=== PATIENT | female | born 1950 | race Caucasian/White ===

== ENCOUNTER 2016-10-24 06:45 | Inpatient (IN) | payer OTHER ==
[~2016-10-24] VITALS: Ht 149.9 cm; Wt 59.0 kg
[~2016-10-24 06:45] MED LIST: ASPIRIN81 M1 PO; ATORVASTATIN CA40 MG PO; CALCITRIOL0.25 MC1 PO; COZAAR100 MG PO; HUMULIN N100 U/M1 SC; IRON65 M2 PO; LANTUS100 U/ML SC; LEVAQUIN500 MG PO; LEVAQUIN750 MG PO; LOPRESSOR25 MG PO; Metoprolol Tartrate PO; OMEPRAZOLE40 MG PO
[2016-10-24 07:00] VITALS: BP 151/75
--- NOTE | 2016-10-24 07:07 | NUR ---
PT AKILA ALS. TAKEN TO BED 2
--- NOTE | 2016-10-24 07:08 | NUR ---
Dr. Cabrera evaluating patient at bedside.
--- NOTE | 2016-10-24 07:28 | NUR ---
PATIENT PRESENTS TO ED WITH 66F BIBA FROM HOME C/O ALOC D/T HYPOGLYCEMIA X TODAY; EMS STATES DAUGHTER KEPT GIVING LANTUS, BS IN FIELD 31; PT GIVEN D10, BS 172 AT THIS TIME. DENIES N/V/D; SKIN IS PINK/WARM/DRY; AAOX4, LUNGS CLEAR BL; HR EVEN AND REGULAR; PT DENIES ANY FEVER, CP, SOB, OR COUGH AT THIS TIME; PATIENT STATES PAIN OF 0/10 AT THIS TIME; VSS; PATIENT POSITIONED FOR COMFORT; HOB ELEVATED; BEDRAILS UP X2; BED DOWN. ER MD MADE AWARE OF PT STATUS.
--- NOTE | 2016-10-24 07:45 | NUR ---
PT LEFT TO CT
[2016-10-24] MEDS ORDERED: POTASSIUM CHL 40 MEQ/ D5-1/2NS 1,000 ML IV ONE (08:30)
[2016-10-24] MEDS ORDERED: DEXTROSE 25% 10 ML SYR IVP ONE (08:30)
[2016-10-24] MEDS ORDERED: DEXTROSE 50% 50 ML SYR IVP ONE (08:40)
[2016-10-24 11:15] VITALS: BP 154/76
--- NOTE | 2016-10-24 11:15 | NUR ---
RECEIVED PATIENT FROM ER WITH CHIEF COMPLAINING OF LOW BLOOD SUGAR, HYPOKALEMIA AND ALTERED MENTAL STATUS. PATIENT APPEARED TO BE CALM AWAKE AND RESTING WELL IN BED. AAOX4 CROATIAN SPEAKING. ABLE TO FOLLOW ALL COMMANDS AND VERBALIZE NEEDS. INITIAL ASSESSMENT DONE. SKIN INTACT. PATIENT DENIED ANY PAIN OR DISCOMFORT. DENIED N/V/D. ABLE TO ASSESS PATIENT'S HISTORY FROM DAUGHTER. PATIENT HAS IV22G TO RIGHT WRIST INTACT AND FLUSHED WELL. REORIENTED PATIENT TO CURRENT UNIT. MRSA SWAB DONE. PLAN OF CARE AND MEDICATION REGIMENTS DISCUSSED, PATIENT AND DAUGHTER VERBALIZED UNDERSTANDING. CALL LIGHT WITHIN REACH. WILL CONTINUE TO MONITOR.
[2016-10-24] MEDS ORDERED: ONDANSETRON 4 MG/2 ML VIAL IVP PRN (12:00)
[2016-10-24] MEDS ORDERED: NACL 0.9% 1,000 ML IV SCH (12:00)
[2016-10-24] MEDS ORDERED: HYDROcodone/APAP 5/325 MG 1 TAB TAB PO PRN (12:00)
--- NOTE | 2016-10-24 12:20 | NUR ---
DR DC AND DR FRANCO IS HERE TO SEE AND EVALUATING PATIENT.
[2016-10-24] MEDS ORDERED: INSULIN ASPART SLIDING SCALE 100 UNITS/ML VIAL SUBQ PRN (12:25)
[2016-10-24] MEDS ORDERED: DEXTROSE 50% 50 ML SYR IVP PRN (12:25)
[2016-10-24] MEDS ORDERED: hydrALAZINE 20 MG/ML VIAL IVP PRN (12:35)
--- NOTE | 2016-10-24 13:20 | NUR ---
RECEIVED TELEPHONE ORDER FROM DR BRAN FOR PATIENT FOR URINE CREATININE, SODIUM AND CHLORIDE RANDOM, AND D5 NS AT 75ML/HR. WILL FOLLOW THROUGH MD ORDERS.
[2016-10-24] MEDS ORDERED: DEXT 5% /NACL 0.9% 1,000 ML IV SCH (13:25)
--- NOTE | 2016-10-24 14:19 | NUR ---
GAVE PATIENT A CUP AND INSTRUCTED HER TO PEE IN THE CUP FOR URINE ANALYSIS, PATIENT VERBALIZED UNDERSTANDING.
[2016-10-24 16:00] VITALS: BP 148/74
[2016-10-24] MEDS ORDERED: BLOOD GLUCOSE MONITORING 1 DEV DEV FS SCH (16:30)
[2016-10-24] MEDS: BLOOD GLUCOSE MONITORING 1 DEV DEV FS SCH ×2 (18:00→23:42)
--- NOTE | 2016-10-24 18:05 | NUR ---
PATIENT CALM AWAKE AND RESTING WELL IN BED. NO SIGN OF DISTRESS NOTED. PATIENT DENIED ANY PAIN OR DISCOMFORT. ALL NEEDS ARE MET. CALL LIGHT WITHIN REACH. WILL CONTINUE TO MONITOR.
--- NOTE | 2016-10-24 19:21 | NUR ---
ENDORSED PATIENT CURRENT PLAN OF CARE TO NIGHT UCHE CH. PATIENT RESTING WELL IN BED. NO SIGN OF DISTRESS NOTED.
--- NOTE | 2016-10-24 19:22 | NUR ---
RECEIVED REPORT FROM DAY NURSEADY. PATIENT RESTING IN BED. NO RESPIRATORY DISTRESS, SOB, OR DISCOMFORT. INITIAL ASSESSMENT AND BODY CHECK DONE. PATIENT IS AOX4, SKIN IS INTACT, IV ACCESS TO RIGHT WRIST 22G PATENT. OLD SCAR TO RIGHT LOWER ABDOMEN, PREVIOUS INSULIN PUMP PLACEMENT. DISCUSSED PLAN OF CARE, MEDICATION REGIMENT, AND PAIN MANAGEMENT WITH PATIENT, PATIENT VERBALIZED UNDERSTANDING. PLACE PATIENT ON SAFETY/FALL PRECAUTIONS. CALL LIGHT LEFT WITHIN REACH, WILL CONTINUE TO MONITOR.
[2016-10-24 20:00] VITALS: BP 144/76
[2016-10-24] MEDS ORDERED: [UNRECOGNIZED DRUG - OTHER] PO SCH (21:00)
[2016-10-24] MEDS ORDERED: METOPROLOL 25 MG TAB PO SCH (21:00)
--- NOTE | 2016-10-24 22:02 | NUR ---
PATIENT RESTING IN BED, WATCHING TELEVISION. NO RESPIRATORY DISTRESS, SOB, OR DISCOMFORT. CALL LIGHT LEFT WITHIN REACH, WILL CONTINUE TO MONITOR.
[2016-10-25] VITALS: BP 145/60
--- NOTE | 2016-10-25 00:54 | NUR ---
PATIENT IN BED, SLEEPING. NO RESPIRATORY DISTRESS, SOB, OR DISCOMFORT. CALL LIGHT LEFT WITHIN REACH, WILL CONTINUE TO MONITOR.
--- NOTE | 2016-10-25 03:24 | NUR ---
PATIENT ASLEEP. NO RESPIRATORY DISTRESS, SOB, OR DISCOMFORT. CALL LIGHT LEFT WITHIN REACH, WILL CONTINUE TO MONITOR.
[2016-10-25 04:00] VITALS: BP 123/47
[2016-10-25] MEDS: BLOOD GLUCOSE MONITORING 1 DEV DEV FS SCH ×3 (06:00→18:05)
--- NOTE | 2016-10-25 06:04 | NUR ---
PATIENT SLEEPING. NO RESPIRATORY DISTRESS, SOB, OR DISCOMFORT. CALL LIGHT LEFT WITHIN REACH, WILL CONTINUE TO MONITOR.
[2016-10-25] MEDS ORDERED: PANTOPRAZOLE 40 MG TABEC PO SCH (06:30)
--- NOTE | 2016-10-25 07:16 | NUR ---
REPORT GIVEN TO DAY NURSE, ADY. PATIENT RESTING STABLE. NO RESPIRATORY DISTRESS, SOB, OR DISCOMFORT. ALL NEEEDS ATTENDED TO DURING SHIFT, CALL LIGHT LEFT WITHIN REACH.
--- NOTE | 2016-10-25 07:17 | NUR ---
RECEIVED REPORT FROM NIGHT NURSE, CHARLETTE IVEY RN. PATIENT APPEARED TO BE CALM AWAKE AND RESTING WELL IN BED. NO RESPIRATORY DISTRESS, SOB, OR DISCOMFORT. INITIAL ASSESSMENT AND BODY CHECK DONE. PATIENT IS AOX4, SKIN IS INTACT, IV ACCESS TO RIGHT WRIST 22G PATENT. OLD SCAR TO RIGHT LOWER ABDOMEN NOTED FOR PREVIOUS INSULIN PUMP PLACEMENT. DISCUSSED PLAN OF CARE, MEDICATION REGIMENT, AND PAIN MANAGEMENT WITH PATIENT, PATIENT VERBALIZED UNDERSTANDING. PLACE PATIENT ON SAFETY/FALL PRECAUTIONS. CALL LIGHT LEFT WITHIN REACH, WILL CONTINUE TO MONITOR.
[2016-10-25] MEDS: METOPROLOL 25 MG TAB PO SCH ×2 (08:15→16:54)
--- NOTE | 2016-10-25 08:19 | NUR ---
MORNING DUE MEDICATIONS AND TEACHING GIVEN, PATIENT TOLERATED WELL. NO SIGN OF DISTRESS NOTED. PATIENT DENIED ANY PAIN OR DISCOMFORT. ALL NEEDS ARE MET. CALL LIGHT WITHIN REACH. WILL CONTINUE TO MONITOR.
[2016-10-25] MEDS ORDERED: NACL 0.9% 1,000 ML IV SCH (08:30)
--- NOTE | 2016-10-25 08:57 | NUR ---
PATIENT HAS BEEN SCREENED AND CATEGORIZED HIGH NUTRITION RISK. PATIENT WILL BE SEEN WITHIN 1-2 DAYS OF ADMISSION. 10/25/16-10/26/[address]
[2016-10-25] MEDS ORDERED: NON-FORMULARY ITEM (Atorvastatin Calcium 40 MG) PO SCH (09:00)
[2016-10-25] MEDS ORDERED: ENOXAPARIN 40 MG/0.4 ML SYR SUBQ SCH (09:00)
[2016-10-25] MEDS ORDERED: ATORVASTATIN 20 MG TAB PO SCH (09:00)
[2016-10-25] MEDS ORDERED: ASPIRIN 81 MG TAB.CHEW PO SCH (09:00)
[2016-10-25] MEDS ORDERED: CALCITRIOL 0.5 MCG PO SCH (09:00)
[2016-10-25] MEDS ORDERED: CALCITRIOL 0.25 MCG CAPLF PO SCH (09:00)
[2016-10-25] MEDS ORDERED: NON-FORMULARY ITEM (Omeprazole 40 MG) PO SCH (09:00)
[2016-10-25 09:30] VITALS: BP 133/77
--- NOTE | 2016-10-25 11:24 | NUR ---
PATIENT SLEEP WELL IN BED. NO SIGN OF DISTRESS NOTED. IVF STILL INFUSING WELL. ALL NEEDS ARE MET. CALL LIGHT WITHIN REACH. WILL CONTINUE TO MONITOR.
[2016-10-25 11:41] VITALS: BP 142/80
--- NOTE | 2016-10-25 12:49 | NUR ---
FAXED REVIEW TO [facility] FAX# [phone] PH# RADHA [phone]
--- NOTE | 2016-10-25 13:01 | NUR ---
PATIENT SLEEP WELL IN BED. NO SIGN OF DISTRESS NOTED. ALL NEEDS ARE MET. CALL LIGHT WITHIN REACH. WILL CONTINUE TO MONITOR.
[2016-10-25] MEDS ORDERED: DEXT 5% / NACL 0.9% 1,000 ML IV SCH (13:25)
[2016-10-25 16:00] VITALS: BP 140/75
--- NOTE | 2016-10-25 19:01 | NUR ---
ALL DISCHARGE PAPERS SIGNED BY PATIENT'S DAUGHTER. ALL DISCHARGE MEDICATIONS PRESCRIPTION AND FOLLOW UP WITH PCP WITHIN 1 WEEK OF DISCHARGE INSTRUCTIONS GIVEN, PATIENT VERBALIZED UNDERSTANDING. ALL IV'S ID BAND AND TELE MONITOR REMOVED. PATIENT WILL BE DISCHARGE HOME VIA PRIVATE VEHICLE. PATIENT DENIED ANY PAIN OR DISCOMFORT. DENIED ANY N/V/D. ALL BELONGING WITH PATIENT. SKIN INTACT. NO SIGN OF DISTRESS NOTED.
--- NOTE | 2016-10-25 19:14 | NUR ---
PATIENT LEFT THE HOSPITAL TO HOME WITH HER DAUGHTER IN STABLE CONDITION. SKIN INTACT. NO SIGN OF DISTRESS NOTED. ALL BELONGINGS WITH PATIENT.
--- NOTE | 2016-11-08 10:18 | NUR ---
RECEIVED A VOICEMAIL FROM [facility] REQUESTING FOR THE DISCHARGE SUMMARY FOR THIS ADMISSION. FAXED DISCHARGE SUMMARY TO [facility] FAX# [phone]
[2016-11-30] MEDS ORDERED: CIPRO500 MG PO (09:05)
== END 2016-10-25 19:15 | disposition home or self-care (01) | DRG 917 ==
LOC: MED 06:45 → MTU 10:39
PROVIDERS: ADMIT Hospitalist; ATTEND Hospitalist
DX: T38.3X1A Poisoning by insulin and oral hypoglycemic [antidiabetic] drugs, accidental (unintentional), initial encounter (principal); G93.41 Metabolic encephalopathy; N17.9 Acute kidney failure, unspecified; N18.4 Chronic kidney disease, stage 4 (severe); E11.649 Type 2 diabetes mellitus with hypoglycemia without coma; E21.1 Secondary hyperparathyroidism, not elsewhere classified; J44.9 Chronic obstructive pulmonary disease, unspecified; E87.6 Hypokalemia; I12.9 Hypertensive chronic kidney disease with stage 1 through stage 4 chronic kidney disease, or unspecified chronic kidney disease; E66.9 Obesity, unspecified; E11.21 Type 2 diabetes mellitus with diabetic nephropathy; E78.5 Hyperlipidemia, unspecified; I45.10 Unspecified right bundle-branch block; T38.3X5A Adverse effect of insulin and oral hypoglycemic [antidiabetic] drugs, initial encounter; Z68.26 Body mass index [BMI] 26.0-26.9, adult; Z90.49 Acquired absence of other specified parts of digestive tract; Z79.899 Other long term (current) drug therapy; Z79.82 Long term (current) use of aspirin; Z79.4 Long term (current) use of insulin; Y92.009 Unspecified place in unspecified non-institutional (private) residence as the place of occurrence of the external cause; Z87.891 Personal history of nicotine dependence; Z83.3 Family history of diabetes mellitus

== ENCOUNTER 2016-11-27 10:37 | Inpatient (IN) | payer OTHER ==
[~2016-11-27] VITALS: Ht 149.9 cm; Wt 74.4 kg
[~2016-11-27 10:37] MED LIST changes: +ASPI81CT89 PO; -ASPIRIN81 M1 PO; +ATOR40TA40 PO; -ATORVASTATIN CA40 MG PO; +CALC0.254 PO; -CALCITRIOL0.25 MC1 PO; -COZAAR100 MG PO; -HUMULIN N100 U/M1 SC; +INSU100S10 SC; -IRON65 M2 PO; +IRON65TA3 PO; +LANTUS SC; -LANTUS100 U/ML SC; -LEVAQUIN500 MG PO; -LEVAQUIN750 MG PO; -LOPRESSOR25 MG PO; +LOSA100T1 PO; +METO25TA PO; -Metoprolol Tartrate PO; +OMEP40EC14 PO; -OMEPRAZOLE40 MG PO
--- NOTE | 2016-11-27 10:44 | NUR ---
Patient taken to bed 01 via wheelchair per family member.
[2016-11-27] MEDS ORDERED: NACL 0.9% 1,000 ML IV ONE ×2 (10:50→11:10)
[2016-11-27 10:51] VITALS: BP 141/109
--- NOTE | 2016-11-27 11:01 | NUR ---
PATIENT PRESENTS TO ED WITH PT BIB DAUGHTER FOR EVALUATION OF COUGH AND SHAKINESS SINCE THIS AM. HX DM, HTN, STAGE 1 KIDNEY FAILURE.DENIES N/V/D; SKIN IS PINK/WARM/DRY; AAOX4, LUNGS CLEAR BL; HR EVEN AND REGULAR; PT DENIES ANY FEVER, CP, SOB, OAT THIS TIME; PATIENT STATES PAIN OF 10/10 AT THIS TIME; VSS; PATIENT POSITIONED FOR COMFORT; HOB ELEVATED; BEDRAILS UP X2; BED DOWN. ER MD MADE AWARE OF PT STATUS.
[2016-11-27] MEDS ORDERED: cloNIDine 0.1 MG TAB PO ONE (11:10)
[2016-11-27] MEDS: KETOROLAC 30 MG/ML VIAL IVP ONE ×2 (11:11→11:20)
[2016-11-27 11:14] LABS: BASOPHILS # (AUTO) 0.2 K/uL (0.00-0.22); BASOPHILS % (AUTO) 1.8 % (0.0-2.0); EOSINOPHILS # (AUTO) 0.2 K/uL (0-0.4); EOSINOPHILS % (AUTO) 1.2 % (0.0-4.0); HEMOGLOBIN 9.9 g/dL (12.0-16.0); LYMPHOCYTES # (AUTO) 0.6 K/uL (2.5-16.5); LYMPHOCYTES % (AUTO) 4.5 % (20.5-51.1); MEAN CORPUSCULAR HEMOGLOBIN 28 pg (27-31); MEAN CORPUSCULAR HGB CONC 31 g/dL (33-37); MEAN CORPUSCULAR VOLUME 89 fL (80-94); MONOCYTES # (AUTO) 0.2 K/uL (0.8-1.0); MONOCYTES % (AUTO) 1.8 % (1.7-9.3); PLATELET COUNT (AUTO) 240 K/uL (140-450); RED CELL DISTRIBUTION WIDTH 12.2 % (11.6-13.7); WHITE BLOOD COUNT (AUTO) 13.2 K/uL (4.8-10.8)
[2016-11-27] MEDS ORDERED: ACETAMINOPHEN 325 MG SUPP RC ONE (11:19)
--- NOTE | 2016-11-27 11:23 | NUR ---
Dr. Campa evaluating patient at bedside.
[2016-11-27] MEDS ORDERED: PIPERACILLIN/TAZOBACTAM 3.375 GM in DEXTROSE 5% 50 ML IV ONE (11:25)
--- NOTE | 2016-11-27 11:25 | NUR ---
HAD PT'S DAUGHTER INSTRUCT PT HOW TO DEEP COUGH AND GIVE A SPUTUM
[2016-11-27 11:30] LABS: ALBUMIN 3.8 g/dL (3.4-5.0); ANION GAP 20.4 (8-16); CARBON DIOXIDE 23.9 mmol/L (21-32); CREATININE 3.1 mg/dL (0.6-1.3); POTASSIUM 4.3 mmol/L (3.5-5.1); TOTAL BILIRUBIN 0.4 mg/dL (0.0-1.0); TOTAL PROTEIN, SERUM 8.4 g/dL (6.4-8.2)
[2016-11-27 11:32] LABS: PARTIAL THROMBOPLASTIN TIME 21.2 secs (22-35.6); PROTHROMBIN TIME 9.5 secs (10.8-13.4)
[2016-11-27] MEDS ORDERED: PIPERACILLIN/TAZOBACTAM 3.375 GM VIAL IV ONE (11:32)
[2016-11-27 11:38] LABS: NEUTROPHILS % (AUTO) 90.7 % (42.2-75.2)
[2016-11-27 11:39] LABS: LACTIC ACID 4.9 mmol/L (0.4-2.0)
[2016-11-27] MEDS ORDERED: ONDANSETRON 4 MG/2 ML VIAL IVP ONE (11:45)
[2016-11-27] MEDS ORDERED: NACL 0.9% 250 ML IV ONE (11:45)
[2016-11-27] MEDS ORDERED: NACL 0.9% 500 ML IV ONE (11:45)
[2016-11-27 12:49] LABS: APPEARANCE,URINE CLEAR (CLEAR); BILIRUBIN,URINE NEGATIVE (NEGATIVE); BLOOD, URINE TRACE-I (NEGATIVE); COLOR,URINE YELLOW (YELLOW); LEUKOCYTE ESTERASE ,URINE TRACE (NEGATIVE); NITRITE, URINE POSITIVE (NEGATIVE); PROTEIN,URINE 2+ (NEGATIVE); UGLUCOSE NEGATIVE (NEGATIVE); UROBILINOGEN,URINE 0.2 EU/dL (0.2 - 1)
[2016-11-27] MEDS ORDERED: DEXTROSE 50% 50 ML SYR IVP PRN (13:00)
[2016-11-27] MEDS ORDERED: ACETAMINOPHEN 325 MG TAB PO PRN (13:00)
[2016-11-27] MEDS ORDERED: ONDANSETRON 4 MG/2 ML VIAL IVP PRN (13:00)
[2016-11-27 13:07] LABS: BACTERIA,URINE 10-30 (MOD) /HPF (None Seen); MUCUS,URINE 1+ /LPF (None Seen); RBC,URINE 0-5 (RARE) /HPF (0-5); SQUAMOUS EPITHELIAL CELL,UR 0-3 (FEW) /LPF (0-3 (FEW)); URINE AMORPHOUS URATE 1+ /HPF (None Seen)
[2016-11-27 13:26] LABS: HEMATOCRIT 27.9 % (36-48); HEMOGLOBIN 9.3 g/dL (12.0-16.0)
--- NOTE | 2016-11-27 13:28 | NUR ---
Patient will be admitted to care of DR. CARRILLO. Admited to TELE Will go to room 108 A Belongings list completed. Report to JING SHARPE
[2016-11-27 13:50] VITALS: BP 103/57
[2016-11-27] MEDS: NACL 0.9% 1,000 ML IV SCH (13:50)
--- NOTE | 2016-11-27 13:50 | NUR ---
PATIENT RECEIVED FROM ER WITH DX OF UROSEPSIS. PATIENT AWAKE, ALERT AND ORIENTED. NO S/S OF DISTRESS NOTED. PATIENT ON ROOM AIR. SKIN IS INTACT.IV LINES NOTED TO THE RIGHT WRIST AND LEFT HAND SALINE LOCKED. PATIENT IS AMBULATORY WITH ASSIST. DAUGHTER PRESENT AT BEDSIDE TO PROVIDE HX. PATIENT PUT ON TELE MONITORING. BED LOWERED WITH CALL LIGHT WITHIN REACH. WILL CONTINUE TO MONITOR
[2016-11-27] MEDS: AZITHROMYCIN 500 MG in DEXTROSE 5% 250 ML IV SCH (15:23)
[2016-11-27 16:00] VITALS: BP 100/50
--- NOTE | 2016-11-27 16:21 | NUR ---
MADE DR CARRILLO AWARE OF PATIENT C/O LEFT SHOULDER AND RIB PAIN. ORDERS RECEIVED
[2016-11-27] MEDS ORDERED: MORPHINE SULFATE 2 MG/ML SYR IVP PRN (16:30)
--- NOTE | 2016-11-27 16:31 | NUR ---
PATIENT REFUSED PAIN MEDICATION. PATIENT STATES IT IS BAD FOR HER KIDNEYS. EXPLAINED TO THE PATIENT THAT DR IS AWARE OF HER CONDITION BUT STILL REFUSED THE MEDICATION
[2016-11-27] MEDS: BLOOD GLUCOSE MONITORING 1 DEV DEV FS SCH ×2 (17:17→21:00)
[2016-11-27] MEDS: INSULIN ASPART SLIDING SCALE 100 UNITS/ML VIAL SUBQ PRN ×2 (17:59→21:01)
--- NOTE | 2016-11-27 19:32 | NUR ---
PATIENT REPORT GIVEN AT BEDSIDE. PATIENT ENDORSED IN STABLE CONDITION
--- NOTE | 2016-11-27 19:33 | NUR ---
RECD. RESTING IN BED, AWAKE, A/OX4, RESPIRATION EVEN AND UNLABORED. IV OF NS AT 70 ML/HR INFUSING LEFT HAND G24. SALINE LOCK AT THE RIGHT WRIST G22, PATENT, INTACT. PLAN OF CARE FOR THE SHIFT DISCUSSED. VERBALIZED UNDERSTANDING. SAFETY MEASURES ENFORCED. DENIES PAIN 0/10.
[2016-11-27 20:00] VITALS: BP 116/55
--- NOTE | 2016-11-27 21:00 | NUR ---
BS CHECKED - 442, DR. GASTON ORDERED 12 UNITS NOVOLOG SUB Q FOR BLOOD SUGAR GREATER THAN 400.
--- NOTE | 2016-11-27 21:30 | NUR ---
Patient's Plan of Care was discussed and reviewed with [employer]AST[employer] TREATMENT SUPERVISOR: KIMBERLY GRANDA
--- NOTE | 2016-11-27 21:30 | NUR ---
SNACK OF 1/2 SANDWICH GIVEN.
[2016-11-28] VITALS: BP 150/59
--- NOTE | 2016-11-28 | NUR ---
NOTED LOW MOANING,INQUIRED IF SHE HAS PAIN, COMPLAINED THAT SHE HAS LEFT SHOULDER PAIN AND RIB PAIN BUT REFUSED TO BE MEDICATED EVEN WITH TYLENOL, CLAIMED IT WILL CAUSE PAIN IN HER FLANK.
[2016-11-28] MEDS: NACL 0.9% 1,000 ML IV SCH ×3 (02:04→15:44)
[2016-11-28 04:00] VITALS: BP 120/54
--- NOTE | 2016-11-28 04:00 | NUR ---
SLEEPING COMFORTABLY IN BED.
[2016-11-28] MEDS: BLOOD GLUCOSE MONITORING 1 DEV DEV FS SCH ×4 (06:22→21:05)
[2016-11-28] MEDS: INSULIN ASPART SLIDING SCALE 100 UNITS/ML VIAL SUBQ PRN ×3 (06:23→17:17)
[2016-11-28 06:40] LABS: BASOPHILS % (AUTO) 0.2 % (0.0-2.0); EOSINOPHILS # (AUTO) 0.3 K/uL (0-0.4); EOSINOPHILS % (AUTO) 1.3 % (0.0-4.0); HEMATOCRIT 24.9 % (36-48); HEMOGLOBIN 8.5 g/dL (12.0-16.0); LYMPHOCYTES # (AUTO) 1.1 K/uL (2.5-16.5); LYMPHOCYTES % (AUTO) 5.7 % (20.5-51.1); MEAN CORPUSCULAR HEMOGLOBIN 30 pg (27-31); MEAN CORPUSCULAR HGB CONC 34 g/dL (33-37); MEAN CORPUSCULAR VOLUME 90 fL (80-94); MONOCYTES # (AUTO) 0.9 K/uL (0.8-1.0); MONOCYTES % (AUTO) 4.7 % (1.7-9.3); NEUTROPHILS # (AUTO) 17.1 K/uL (1.8-7.7); NEUTROPHILS % (AUTO) 88.1 % (42.2-75.2); PLATELET COUNT (AUTO) 164 K/uL (140-450); RED BLOOD CELL COUNT(AUTO) 2.78 MIL/uL (4.20-5.40); RED CELL DISTRIBUTION WIDTH 12.1 % (11.6-13.7)
--- NOTE | 2016-11-28 06:40 | NUR ---
CONDITION REMAIN STABLE. WILL ENDORSE TO AM NURSE FOR CONTINUITY OF CARE.
[2016-11-28 07:00] LABS: ANION GAP 13.6 (8-16); CALCIUM 7.9 mg/dL (8.5-10.1); CARBON DIOXIDE 25.5 mmol/L (21-32); CREATININE 3.2 mg/dL (0.6-1.3); POTASSIUM 4.1 mmol/L (3.5-5.1)
--- NOTE | 2016-11-28 07:15 | NUR ---
ENDORSED TO JING GOULD FOR CONTINUITY OF CARE.
--- NOTE | 2016-11-28 07:16 | NUR ---
RECEIVED REPORT FROM SUSANA HARRIS. PT IS AAOX4. PT ON ROOM AIR WITH NO S/S OF DISTRESS NOTED. IV TO LEFT HAND #24, PATENT AND INTACT. NO N/V OR PAIN INDICATED. ALL SAFETY PRECAUTIONS IN PLACE, SIDE RAILSX2, BED IN LOW POSITION, AND CALL LIGHT WITHIN REACH. WILL CONTINUE TO MONITOR. Addendum: 11/28/16 at 0800 by Nicolle Perla RN SKIN INTACT.
--- NOTE | 2016-11-28 07:32 | NUR ---
RECEIVED CRITICAL FROM LAB. BUN 89, CREATININE 3.2. DR CARRILLO MADE AWARE, NO ORDERS RECEIVED.
[2016-11-28 07:45] LABS: WHITE BLOOD COUNT (AUTO) 19.4 K/uL (4.8-10.8)
[2016-11-28 08:00] VITALS: BP 123/57
[2016-11-28] MEDS: PANTOPRAZOLE 40 MG INJ VIAL IVP SCH (09:16)
--- NOTE | 2016-11-28 09:21 | NUR ---
PATIENT HAS BEEN SCREENED AND CATEGORIZED HIGH NUTRITION RISK. PATIENT WILL BE SEEN WITHIN 1-2 DAYS OF ADMISSION. 11/28/16-11/29/[address]
--- NOTE | 2016-11-28 09:22 | NUR ---
PT TOLERATED MEDS WELL. WILL CONTINUE TO MONITOR.
[2016-11-28] MEDS ORDERED: INSULIN DETEMIR 100 UNITS/ML 10 ML VIAL SUBQ SCH (09:39)
[2016-11-28] MEDS ORDERED: CALCITRIOL 0.25 MCG CAPLF PO SCH (09:40)
--- NOTE | 2016-11-28 09:58 | NUR ---
BLOOD GLUCOSE 301, ADMINISTERED 35 UNITS OF LEVEMIR ORDERED. PT TOLERATED MEDS WELL. WILL CONTINUE TO MONITOR.
[2016-11-28] MEDS: INSULIN HUMAN NPH 100 UNITS/ML VIAL SUBQ SCH ×2 (11:35→16:22)
--- NOTE | 2016-11-28 11:38 | NUR ---
BLOOD GLUCOSE 277, ADMINISTERED 6 UNITS OF NPH ORDERED. PT TOLERATED WELL. WILL ADMINISTER NOVOLOG WHEN FOOD TRAY ARRIVES.
[2016-11-28 12:00] VITALS: BP 131/64
[2016-11-28] MEDS: FERROUS SULFATE 325 MG TABEC PO SCH ×2 (12:15→16:19)
--- NOTE | 2016-11-28 12:24 | NUR ---
PT TOLERATED MEDS WELL. BLOOD GLUCOSE 277, ADMINISTERED 6 UNITS OF NOVOLOG ORDERED. PT TOLERATED WELL. WILL CONTINUE TO MONITOR.
[2016-11-28] MEDS: AZITHROMYCIN 500 MG in DEXTROSE 5% 250 ML IV SCH (13:14)
--- NOTE | 2016-11-28 13:19 | NUR ---
PT TOLERATED MEDS WELL. WILL CONTINUE TO MONITOR.
--- NOTE | 2016-11-28 13:29 | NUR ---
FAXED INITIAL REVIEW TO [facility] [phone] PHONE MARCH [phone]
--- NOTE | 2016-11-28 15:00 | NUR ---
VSS. NO DISTRESS NOTED AT THIS TIME.
[2016-11-28 15:55] LABS: HEMATOCRIT 25.8 % (36-48); HEMOGLOBIN 8.5 g/dL (12.0-16.0)
[2016-11-28 16:00] VITALS: BP 129/68
--- NOTE | 2016-11-28 16:24 | NUR ---
PT TOLERATED MEDS WELL. BLOOD GLUCOSE 364, ADMINISTERED 6 UNITS OF NPH. WILL CONTINUE TO MONITOR.
--- NOTE | 2016-11-28 16:49 | NUR ---
FAMILY PRESENT AT BEDSIDE. WILL CONTINUE TO MONITOR.
--- NOTE | 2016-11-28 17:18 | NUR ---
BLOOD GLUCOSE 215, ADMINISTERED 4 UNITS OF INSULIN ORDERED. WILL CONTINUE TO MONITOR.
--- NOTE | 2016-11-28 18:43 | NUR ---
PT WATCHING TV WITH NO DISTRESS NOTED.
--- NOTE | 2016-11-28 19:20 | NUR ---
ENDORSED CARE TO JING CHOE. PT IN STABLE CONDITION.
--- NOTE | 2016-11-28 19:30 | NUR ---
RECEIVED REPORT FROM BRYANNA RN AT BEDSIDE, PATIENT IS AAOX4. ASSESSMENT COMPLETE, PATIENT SKIN INTACT, IV TO LH 24G WITH FLUIDS INFUSING WELL. PATIENT DENIES PAIN AT THIS TIME, NO SOB OR SIGN OF DISTRESS. SAFETY MEASURES CHECKED, DISCUSSED PLAN OF CARE WITH PATIENT, PATIENT VERBALIZED UNDERSTANDING, CALL LIGHT WITHIN REACH. WILL CONTINUE TO MONITOR.
[2016-11-28 20:00] VITALS: BP_SYST 136; BP_SYST 148; BP_DIAS 66; BP_DIAS 75
[2016-11-28] MEDS: ATORVASTATIN 20 MG TAB PO SCH (21:04)
[2016-11-28] MEDS: METOPROLOL 25 MG TAB PO SCH (21:04)
[2016-11-28] MEDS: LOSARTAN 50 MG TAB PO SCH (21:05)
--- NOTE | 2016-11-28 21:10 | NUR ---
PM MEDS ADMINISTERED, PATIENT TOLERATED WELL, CALL LIGHT WITHIN REACH. WILL CONTINUE TO MONITOR.
--- NOTE | 2016-11-28 22:30 | NUR ---
PATIENT RESTING IN BED, PROVIDED PATIENT WITH SNACKS. CALL LIGHT WITHIN REACH, WILL CONTINUE TO MONITOR.
--- NOTE | 2016-11-28 23:30 | NUR ---
PATIENT SLEEPING, NO SIGN OF DISTRESS, CALL LIGHT WITHIN REACH. WILL CONTINUE TO MONITOR.
[2016-11-29] VITALS: BP 136/66
--- NOTE | 2016-11-29 01:06 | NUR ---
VITAL SIGNS STABLE, PATIENT GOING TO SLEEP, NO DISTRESS NOTED, CALL LIGHT WITHIN REACH. WILL CONTINUE TO MONITOR.
[2016-11-29] MEDS: NACL 0.9% 1,000 ML IV SCH ×3 (01:23→21:03)
--- NOTE | 2016-11-29 03:00 | NUR ---
PATIENT RESTING IN BED, NO SOB OR SIGN OF DISTRESS, CALL LIGHT WITHIN REACH. WILL CONTINUE TO MONITOR.
[2016-11-29 04:00] VITALS: BP 126/62
--- NOTE | 2016-11-29 04:20 | NUR ---
VITAL SIGNS STABLE, PATIENT SLEEPING, NO SOB OR SIGN OF DISTRESS, CALL LIGHT WITHIN REACH. WILL CONTINUE TO MONITOR.
[2016-11-29 05:58] LABS: BASOPHILS # (AUTO) 0.1 K/uL (0.00-0.22); BASOPHILS % (AUTO) 0.6 % (0.0-2.0); EOSINOPHILS # (AUTO) 0.2 K/uL (0-0.4); EOSINOPHILS % (AUTO) 2.1 % (0.0-4.0); HEMATOCRIT 22.8 % (36-48); HEMOGLOBIN 7.6 g/dL (12.0-16.0); LYMPHOCYTES # (AUTO) 1.5 K/uL (2.5-16.5); LYMPHOCYTES % (AUTO) 12.8 % (20.5-51.1); MEAN CORPUSCULAR HEMOGLOBIN 30 pg (27-31); MEAN CORPUSCULAR HGB CONC 33 g/dL (33-37); MEAN CORPUSCULAR VOLUME 90 fL (80-94); MONOCYTES # (AUTO) 0.5 K/uL (0.8-1.0); MONOCYTES % (AUTO) 3.8 % (1.7-9.3); NEUTROPHILS # (AUTO) 9.6 K/uL (1.8-7.7); NEUTROPHILS % (AUTO) 80.7 % (42.2-75.2); PLATELET COUNT (AUTO) 169 K/uL (140-450); RED BLOOD CELL COUNT(AUTO) 2.53 MIL/uL (4.20-5.40); RED CELL DISTRIBUTION WIDTH 12.2 % (11.6-13.7)
[2016-11-29] MEDS: BLOOD GLUCOSE MONITORING 1 DEV DEV FS SCH ×4 (06:29→20:49)
--- NOTE | 2016-11-29 06:30 | NUR ---
BLOOD SUGAR CHECK 86, NO COVERAGE, PATIENT SLEEPING, NO SIGN OF DISTRESS, CALL LIGHT WITHIN REACH, WILL CONTINUE TO MONITOR
--- NOTE | 2016-11-29 07:30 | NUR ---
RECEIVED FROM [facility] NUR[facility]. PT IS AROUSABLE , NO DISTRESS REPORTED, IV PATENT AND NO SX OF INFILTRATION. CALL LIGHT WITHIN REACH, SIDE RAILS UP FOR SAFETY PT BS LEVEL IS LOW. PT REPORTED " I HAVE NO APPETITE TO EAT. WILL HOLD INSULIN FOR THIS AM FOR RISK OF HYPOGLYCEMIA. NOTIFIED AND AGREED "
--- NOTE | 2016-11-29 07:32 | NUR ---
ENDORSED PATIENT TO DAY SHIFT RN AT BEDSIDE, PATIENT IN STABLE CONDITION
[2016-11-29 07:34] LABS: ANION GAP 12.9 (8-16); CALCIUM 8.1 mg/dL (8.5-10.1); CARBON DIOXIDE 25.1 mmol/L (21-32); CREATININE 2.6 mg/dL (0.6-1.3)
[2016-11-29 07:42] LABS: WHITE BLOOD COUNT (AUTO) 11.9 K/uL (4.8-10.8)
--- NOTE | 2016-11-29 07:50 | NUR ---
PT BS LEVEL AT 86. PT REFUSING TO EAT. " I DONT LIKE TO EAT." PT HAVE INSULIN ORDER FOR 0800. HELD TO PREVENT SX OF HYPOGLYCEMIA. PT IS AWAKE NO REPORTS OF PAIN, ABLE TO GO TO THE TOILET WITH MIN ASSIST
[2016-11-29 08:00] VITALS: BP 130/57
[2016-11-29] MEDS: INSULIN HUMAN NPH 100 UNITS/ML VIAL SUBQ SCH ×3 (08:00→16:50)
[2016-11-29] MEDS ORDERED: NON-FORMULARY ITEM (Omeprazole 40 MG) PO SCH (09:00)
[2016-11-29] MEDS: LOSARTAN 50 MG TAB PO SCH ×2 (09:05→20:46)
[2016-11-29] MEDS: FERROUS SULFATE 325 MG TABEC PO SCH ×3 (09:05→16:38)
[2016-11-29] MEDS: ASPIRIN 81 MG TAB.CHEW PO SCH (09:05)
[2016-11-29] MEDS: METOPROLOL 25 MG TAB PO SCH ×2 (09:05→20:46)
[2016-11-29] MEDS: CALCITRIOL 0.25 MCG CAPLF PO SCH (09:06)
[2016-11-29] MEDS: PANTOPRAZOLE 40 MG INJ VIAL IVP SCH (09:06)
[2016-11-29] MEDS: INSULIN DETEMIR 100 UNITS/ML 10 ML VIAL SUBQ SCH (09:39)
--- NOTE | 2016-11-29 09:40 | NUR ---
PT BS LEVEL AT 195. PT FINISHED 100% OF HER MEALS. RECHECKED BS BEFORE ADMIN OF INSULIN. ADMINSTERED INSULIN SCHEDULED AT 0900
--- NOTE | 2016-11-29 10:33 | NUR ---
PATIENT PERFORMED URINATION 200 ML
--- NOTE | 2016-11-29 10:39 | NUR ---
FAXED CONCURRENT REVIEW TO [facility] [phone] PHONE MARCH [phone]
--- NOTE | 2016-11-29 10:46 | NUR ---
PAGED DR CARRILLO TO REPORT HEMOGLOBIN 7.6 / HCT 22.8 CALLED EXHNAGED SPOKE WITH CARMELA. PT REPORTED DARK COLORED STOOL. PT HAVE ROUTINE IRON SULFATE NO ORAL BLEEDING REPORTED VS REMAINED TO BE STABLE.
--- NOTE | 2016-11-29 11:01 | NUR ---
DR CARRILLO CAME AND VISITED THE PATIENT. NOTIFIED RE : BS LEVEL IS GOING DOWN AND LOW HGB LEVEL. PT WILL STAY ONE MORE DAY FOR MONITORING DOWNGRADED TO MED/SURG TELEMETRY STATUS
[2016-11-29] MEDS: INSULIN ASPART SLIDING SCALE 100 UNITS/ML VIAL SUBQ PRN ×2 (11:35→16:43)
--- NOTE | 2016-11-29 11:49 | NUR ---
ADMINISTERED INSULIN ORDERED NPH AND NOVOLOG INSULIN. ADMINIISTERED ON L DELTOID SUB Q PT TOLERATED WELL. IV PATENT NO SX OF INFILITRATION. PT IS AWAKE AND ALERT OREINTED
--- NOTE | 2016-11-29 12:25 | NUR ---
11/29/16 RD INITIAL ASSESSMENT COMPLETED PLEASE REFER TO NUTRITION ASSESSMENT UNDER CARE ACTIVITY FOR ESTIMATED NUTRITIONAL NEEDS. RD RECOMMENDATIONS: 1. CONTINUE CCHO 60 GM DIET TOLERATED PER MD 2. RECOMMEND ADDING RENAL FEATURES TO CURRENT DIET ORDER D/T PT PMH CKD 3. RD PROVIDED PT WITH DM AND RENAL DISEASE DIET EDUCATION 4. RD WILL F/U 3-5 DAYS; MODERATE RISK. ANTONIA MONTOYA RD
--- NOTE | 2016-11-29 12:48 | NUR ---
ADMINISTERED MEDS ORDERED. NO SX OF INFILTRATION. PT IN THE CHAIR EATING.
[2016-11-29 13:17] LABS: HEMOGLOBIN 8.2 g/dL (12.0-16.0)
[2016-11-29] MEDS: AZITHROMYCIN 500 MG in DEXTROSE 5% 250 ML IV SCH (14:13)
[2016-11-29 16:00] VITALS: BP 122/77
--- NOTE | 2016-11-29 16:51 | NUR ---
ADMINISTERED INSULIN ORDERED AND SLIDING SCALE. NOTED BRUISING ON THE MID ABDOMEN ANDR LOWER ABDOMEN. ADMINISTERED ON L LOWER QUAD PT TOLERATED WELL
--- NOTE | 2016-11-29 17:53 | NUR ---
SEEN PATIENT EATING DINNER. NO REPORT OF DISTRESS AT THIS TIME REPORTED
--- NOTE | 2016-11-29 19:30 | NUR ---
ENDORSED TO NURSE CHOE. PT PERFORMED URINATION AT 1850 WITH 400 ML FLUID OUTPUT. NOC NURSE TO ADD ON THE I/O FOR TONIGHT PT IS WITH FAMILY AND GIVEN UPDATES ON PT CONDITION LEFT PT COMFORTABLY, IV PATENT NO SX OF INFILTRATION CALL LIGHT WITHIN REACH. SIDE RAILS UP FOR SAFETY
--- NOTE | 2016-11-29 19:45 | NUR ---
BLOOD SUGAR 93, NO COVERAGE NEEDED.
--- NOTE | 2016-11-29 19:59 | NUR ---
RECEIVED REPORT FROM CAMILO RN, PATIENT IS AAOX4 SITTING UP IN BED VISITING FAMILY. ASSESSMENT COMPLETE. PATIENT SKIN IS INTACT, IV TO LH 24G WITH IVF INFUSING WELL. PATIENT DENIES PAIN AT THIS TIME, NO SIGN OF DISTRESS. PATIENT IS AMBULATORY, SAFETY MEASURES CHECKED, DISCUSSED PLAN OF CARE WITH PATIENT, PATIENT VERBALIZED UNDERSTANDING, CALL LIGHT WITHIN REACH. WILL CONTINUE TO MONITOR.
[2016-11-29 20:00] VITALS: BP 165/71
[2016-11-29] MEDS: ATORVASTATIN 20 MG TAB PO SCH (20:45)
--- NOTE | 2016-11-29 20:50 | NUR ---
PM MEDS ADMINISTERED, PATIENT TOLERATED WELL, CALL LIGHT WITHIN REACH. WILL CONTINUE TO MONITOR.
--- NOTE | 2016-11-29 22:30 | NUR ---
PATIENT RESTING IN BED NO SIGN OF DISTRESS, CALL LIGHT WITHIN REACH. WILL CONTINUE TO MONITOR.
--- NOTE | 2016-11-30 00:32 | NUR ---
PATIENT SLEEPING COMFORTABLE, NO SIGN OF DISTRESS, CALL LIGHT WITHIN REACH. WILL CONTINUE TO MONITOR.
--- NOTE | 2016-11-30 01:58 | NUR ---
PATIENT SLEEPING COMFORTABLE IN BED, NO SOB OR SIGN OF DISTRESS, CALL LIGHT WITHIN REACH. WILL CONTINUE TO MONITOR.
--- NOTE | 2016-11-30 03:30 | NUR ---
PATIENT SLEEPING, NO SOB OR SIGN OF DISTRESS, CALL LIGHT WITHIN REACH. WILL CONTINUE TO MONITOR.
[2016-11-30 04:00] VITALS: BP 140/73
--- NOTE | 2016-11-30 04:20 | NUR ---
VITAL SIGNS STABLE, NO SOB OR SIGN OF DISTRESS, PATIENT STATES SHE IS FINE, CALL LIGHT WITHIN REACH. WILL CONTINUE TO MONITOR.
--- NOTE | 2016-11-30 06:00 | NUR ---
BS CHECK 61 GAVE PATIENT JUICE, RECHECKED BS UP TO 81 PATIENT RESTING IN BED WATCHING TV, CALL LIGHT WITHIN REACH. WILL CONTINUE TO MONITOR.
[2016-11-30] MEDS: BLOOD GLUCOSE MONITORING 1 DEV DEV FS SCH ×2 (06:37→11:03)
[2016-11-30] MEDS: NACL 0.9% 1,000 ML IV SCH ×2 (06:37→10:23)
[2016-11-30 06:55] LABS: ANION GAP 14.1 (8-16); POTASSIUM 4.1 mmol/L (3.5-5.1)
[2016-11-30 07:04] LABS: CALCIUM 8.3 mg/dL (8.5-10.1); CREATININE 2.5 mg/dL (0.6-1.3)
--- NOTE | 2016-11-30 07:32 | NUR ---
ENDORSED PATIENT TO DAY SHIFT RN, PATIENT IN STABLE CONDITION
--- NOTE | 2016-11-30 07:33 | NUR ---
RECEIVED REPORT FROM JING CHOE. PT IS AAOX4, PT ON ROOM AIR WITH NO S/S OF DISTRESS NOTED. IV TO LEFT HAND #24, PATENT AND INTACT. NO N/V OR PAIN INDICATED. SKIN INTACT. ALL SAFETY PRECAUTIONS IN PLACE, SIDE RAILSX2, BED IN LOW POSITION, AND CALL LIGHT WITHIN REACH. WILL CONTINUE TO MONITOR.
[2016-11-30 08:00] VITALS: BP 165/78
[2016-11-30] MEDS: INSULIN HUMAN NPH 100 UNITS/ML VIAL SUBQ SCH ×2 (08:00→12:03)
[2016-11-30 08:03] LABS: HEMATOCRIT 23.3 % (36-48); HEMOGLOBIN 8.1 g/dL (12.0-16.0); MEAN CORPUSCULAR HEMOGLOBIN 31 pg (27-31); MEAN CORPUSCULAR HGB CONC 35 g/dL (33-37); MEAN CORPUSCULAR VOLUME 90 fL (80-94); PLATELET COUNT (AUTO) 163 K/uL (140-450); RED CELL DISTRIBUTION WIDTH 12.3 % (11.6-13.7)
[2016-11-30] MEDS: INSULIN DETEMIR 100 UNITS/ML 10 ML VIAL SUBQ SCH (08:30)
--- NOTE | 2016-11-30 08:30 | NUR ---
BLOOD GLUCOSE 121. PT HAD DECREASED BLOOD GLUCOSE EARLIER. PT REFUSED NPH, AND LEVEMIR AT THIS TIME. PT TO RESUME INSULIN REGIMEN PRIOR TO LUNCH. PT WORRIED SUGAR WILL DROP AGAIN. WILL CONTINUE TO MONITOR.
[2016-11-30] MEDS: LOSARTAN 50 MG TAB PO SCH (08:36)
[2016-11-30] MEDS: FERROUS SULFATE 325 MG TABEC PO SCH ×2 (08:36→12:07)
[2016-11-30] MEDS: PANTOPRAZOLE 40 MG INJ VIAL IVP SCH (08:36)
[2016-11-30] MEDS: ASPIRIN 81 MG TAB.CHEW PO SCH (08:36)
[2016-11-30] MEDS: METOPROLOL 25 MG TAB PO SCH (08:37)
[2016-11-30] MEDS: CALCITRIOL 0.25 MCG CAPLF PO SCH (08:37)
--- NOTE | 2016-11-30 08:45 | NUR ---
PT TOLERATED MEDS WELL. BP 165/78, HR 83. WILL CONTINUE TO MONITOR.
[2016-11-30] MEDS ORDERED: CIPR500T4 PO (09:05)
--- NOTE | 2016-11-30 10:19 | NUR ---
PT SLEEPING WITH NO DISTRESS NOTED.
--- NOTE | 2016-11-30 10:21 | NUR ---
CM NOTE CONCURRENT REVIEW FAXED TO [facility] / FAX# [phone], ATTN: RADHA #[phone]
--- NOTE | 2016-11-30 11:01 | NUR ---
JOSE NOTE CONCURRENT REVIEW FAXED TO [facility] (FAX# [phone], C: [phone]) AND [facility] (FAX# [phone], C: [phone]) Addendum: 11/30/16 at 1308 by James Trinidad RN CORRECTION: WRONG PATIENT
--- NOTE | 2016-11-30 11:03 | NUR ---
BLOOD GLUCOSE 158, WILL ADMINISTER INSULIN WHEN FOOD TRAY ARRIVES.
[2016-11-30 12:00] VITALS: BP 158/73
[2016-11-30] MEDS: INSULIN ASPART SLIDING SCALE 100 UNITS/ML VIAL SUBQ PRN (12:00)
--- NOTE | 2016-11-30 12:13 | NUR ---
BLOOD GLUCOSE 158, AND ADMINISTERED 2 UNITS OF NOVOLOG AND 6 UNITS OF NPH. PT TOLERATED MEDS WELL. WILL CONTINUE TO MONITOR.
[2016-11-30 12:56] LABS: BASOPHILS % (AUTO) 0.4 % (0.0-2.0); EOSINOPHILS # (AUTO) 0.3 K/uL (0-0.4); EOSINOPHILS % (AUTO) 4.1 % (0.0-4.0); LYMPHOCYTES # (AUTO) 1.7 K/uL (2.5-16.5); LYMPHOCYTES % (AUTO) 20.8 % (20.5-51.1); MONOCYTES # (AUTO) 0.5 K/uL (0.8-1.0); MONOCYTES % (AUTO) 5.6 % (1.7-9.3); NEUTROPHILS # (AUTO) 5.5 K/uL (1.8-7.7); NEUTROPHILS % (AUTO) 69.1 % (42.2-75.2)
[2016-11-30] MEDS: AZITHROMYCIN 500 MG in DEXTROSE 5% 250 ML IV SCH (13:04)
--- NOTE | 2016-11-30 13:10 | NUR ---
PT TOLERATED MEDS WELL. WILL CONTINUE TO MONITOR.
--- NOTE | 2016-11-30 14:02 | NUR ---
PT WATCHING TV WITH NO DISTRESS NOTED.
--- NOTE | 2016-11-30 14:30 | NUR ---
PT TO BE DISCHARGED. WILL FOLLOW UP ON ORDERS.
--- NOTE | 2016-11-30 15:25 | NUR ---
PT HAS BEEN DISCHARGED. ALL PAPERWORK SIGNED. ALL QUESTIONS ANSWERED. ALL BELONGINGS AND PRESCRIPTIONS IN PT POSSESSION. IV DC'ED WITH CANNULA INTACT. WRISTBANDS REMOVED. NOTIFIED HEALTHCARE ASSOCIATE. PT WHEELED OUT OF UNIT, FAMILY PRESENT AT BEDSIDE. PT AMBULATED TO VEHICLE WITH STEADY GAIT. PT IN STABLE CONDITION.
== END 2016-11-30 15:25 | disposition home or self-care (01) | DRG 683 ==
LOC: MED 10:37 → MTU 12:42
PROVIDERS: ADMIT Hospitalist; ATTEND Hospitalist
DX: N17.9 Acute kidney failure, unspecified (principal); N39.0 Urinary tract infection, site not specified; I13.0 Hypertensive heart and chronic kidney disease with heart failure and stage 1 through stage 4 chronic kidney disease, or unspecified chronic kidney disease; N18.3 Chronic kidney disease, stage 3 (moderate); E86.0 Dehydration; I25.10 Atherosclerotic heart disease of native coronary artery without angina pectoris; K21.9 Gastro-esophageal reflux disease without esophagitis; E78.5 Hyperlipidemia, unspecified; J44.9 Chronic obstructive pulmonary disease, unspecified; D64.9 Anemia, unspecified; B96.20 Unspecified Escherichia coli [E. coli] as the cause of diseases classified elsewhere; D72.829 Elevated white blood cell count, unspecified; E11.22 Type 2 diabetes mellitus with diabetic chronic kidney disease; I50.9 Heart failure, unspecified; Z90.49 Acquired absence of other specified parts of digestive tract; Z87.891 Personal history of nicotine dependence
CPT/HCPCS: 36415; 71010; 80048; 80053; 81001; 82948; 83605; 83735; 83880; 84484; 85018; 85025; 85610; 85730; 87040; 87070; 87081; 87086; 87186; 87205; 93005; 96361; 96365; 96375; 99291; C1758; C9113; J0456; J0696; J1644; J1815; J1885; J2405; J2543; J7030; J7060; Q0092

== ENCOUNTER 2020-08-31 12:50 | Inpatient (IN) | payer OTHER, SELFPAY ==
[~2020-08-31] VITALS: Ht 160 cm; Wt 72.1 kg
[~2020-08-31 12:50] MED LIST changes: +ASPI-1822 PO; -ASPI81CT89 PO; +CALC0.2527 PO; -CALC0.254 PO; +CIPR500T4 PO; +FERR-212 PO; -IRON65TA3 PO
--- NOTE | 2020-08-31 12:50 | NUR ---
Patient BIBA ALS, transferred to bed 8. RN evaluating patient at bedside.
[2020-08-31 12:53] VITALS: BP 121/44
--- NOTE | 2020-08-31 13:05 | NUR ---
70 y/o female pt biba from home c/o generalized weakness, cough, and fever x 2 weeks. Symptoms have progressivley worsened in the last 2 days. PMH: HTN, DM, renal failure, AV fistula to left arm, pacemaker RX: Pt states is unknown NKA
--- NOTE | 2020-08-31 13:10 | NUR ---
Dr. Coppola is evaluating the patient at bedside.
--- NOTE | 2020-08-31 13:11 | NUR ---
Dr. Coppola at pt bedside for evaluation.
--- NOTE | 2020-08-31 13:47 | NUR ---
EKG performed at bedside.
--- NOTE | 2020-08-31 13:50 | NUR ---
Performed COVID LEO swab, gave to [email or web address] tech.
--- NOTE | 2020-08-31 13:51 | NUR ---
[employer] technician at pt bedside.
--- NOTE | 2020-08-31 13:52 | NUR ---
Pt refusing to provide UA collection, Dr. Coppola made aware for straight catheter order.
--- NOTE | 2020-08-31 13:59 | NUR ---
Pt had small dark BM, changed to clean diaper. Repositioned in bed.
--- NOTE | 2020-08-31 14:03 | NUR ---
blood or blood bank technician at bedside for XR-chest.
[2020-08-31 14:20] LABS: BASOPHILS % (AUTO) 0.4 % (0.0-2.0); EOSINOPHILS % (AUTO) 0.2 % (0.0-4.0); HEMATOCRIT 33.1 % (36-48); HEMOGLOBIN 10.9 g/dL (12.0-16.0); LYMPHOCYTES # (AUTO) 0.6 K/uL (2.5-16.5); LYMPHOCYTES % (AUTO) 12.6 % (20.5-51.1); MEAN CORPUSCULAR HEMOGLOBIN 31 pg (27-31); MEAN CORPUSCULAR HGB CONC 33 g/dL (33-37); MEAN CORPUSCULAR VOLUME 92.9 fL (80-94); MONOCYTES # (AUTO) 0.4 K/uL (0.8-1.0); MONOCYTES % (AUTO) 8.9 % (1.7-9.3); NEUTROPHILS # (AUTO) 3.6 K/uL (1.8-7.7); NEUTROPHILS % (AUTO) 77.9 % (42.2-75.2); PLATELET COUNT (AUTO) 114 K/uL (140-450); RED BLOOD CELL COUNT(AUTO) 3.56 MIL/uL (4.20-5.40); RED CELL DISTRIBUTION WIDTH 18.3 % (11.6-13.7); WHITE BLOOD COUNT (AUTO) 4.7 K/uL (4.8-10.8)
[2020-08-31 14:39] LABS: ALBUMIN 3.2 g/dL (3.4-5.0); ANION GAP 14.4 (8-16); CARBON DIOXIDE 30.1 mmol/L (21-32); POTASSIUM 3.5 mmol/L (3.5-5.1); TOTAL BILIRUBIN 0.7 mg/dL (0.0-1.0)
[2020-08-31 14:40] LABS: CREATININE 7.5 mg/dL (0.6-1.3)
--- NOTE | 2020-08-31 14:40 | NUR ---
Unable to obtain urine, pt is renal failure. Dr. Coppola made aware.
--- NOTE | 2020-08-31 14:41 | NUR ---
Creatinine 7.5, BUN 51-- critical values received from lab. Dr Coppola made aware
--- NOTE | 2020-08-31 15:13 | NUR ---
Performed RUDOLPH CASTILLO at pt bedside, walked to lab.
[2020-08-31] MEDS ORDERED: AZITHROMYCIN 500 MG in DEXTROSE 5% 250 ML IV ONE (15:50)
[2020-08-31] MEDS ORDERED: DEXAMETHASONE 10 MG/ML VIAL IVP ONE (15:50)
[2020-08-31] MEDS ORDERED: cefTRIAXone 1,000 MG VIAL ONE (15:58)
--- NOTE | 2020-08-31 16:17 | NUR ---
Established IV to right AC 18G, good blood return.
[2020-08-31] MEDS ORDERED: HYDROcodone/APAP 5/325 MG 1 TAB TAB PO PRN (16:40)
[2020-08-31] MEDS ORDERED: DEXTROSE 50% 50 ML SYR IVP PRN (16:40)
[2020-08-31] MEDS ORDERED: AZITHROMYCIN 500 MG INJ VIAL IV ONE (17:08)
[2020-08-31 17:19] LABS: CREATINE KINASE MB 0.8 ng/mL (0-3.6)
--- NOTE | 2020-08-31 17:39 | NUR ---
Spoke to patients daughter, Fe. Tank dialysis Monday, Monday, , Monday. Did not end up receiving dialysis today
--- NOTE | 2020-08-31 17:48 | NUR ---
Performed accue check. BS 209.
--- NOTE | 2020-08-31 18:52 | NUR ---
Pt repositioned for comfort, VSS, will continue to monitor.
--- NOTE | 2020-08-31 19:20 | NUR ---
RECEIVED REPORT FROM MARIA DOLORES CH
--- NOTE | 2020-08-31 19:23 | NUR ---
Report given to JING Bajwa. Transfer of care at this time
--- NOTE | 2020-08-31 19:46 | NUR ---
PT MOANING IN HER BED SAYING HER ANUS HURTS, ASKING FOR MEDICINE.
[2020-08-31] MEDS: MORPHINE SULFATE 2 MG/ML SYR IVP PRN (19:51)
--- NOTE | 2020-08-31 20:17 | NUR ---
PT TO BE ADMITTED TO TELE 113, JING MOISE EXT [phone], ATTEMPTED TO CALL BUT NO ANSWER AT THIS TIME
--- NOTE | 2020-08-31 20:29 | NUR ---
REPORT CALLED TO JOSE MARIA CH, WILL TRANSPORT PT ON [facility] VIA PORTABLE MONITOR
--- NOTE | 2020-08-31 20:40 | NUR ---
RECEIVED PT AAOX4 , FROM ER PER SILAS QUINTERO - O2 SAT WNL . IV SITE INTACT AND PATENT , W/ AV FISTULA AT LEFT ARM - ON HD MWF - PER ER NURSE PT MISSED HER HD TODAY , W/ O2 AT 2LPM/NC , HOOK ON O2 SAT MONITOR FOR URINE COLLECTION BUT THE PT IS HD DEPENDENT SHE DOES NOT MAKE HER URINE AT ALL . ADMISSION ASSESSMENT - DONE , MRSA SPECIMEN - SENT TO LAB . SAFETY MEASURES IN PLACE - BED ALARM ON PLAN OF CARE DISCUSSED AND VERBALIZE UNDERSTANDING - CALL LIGHT WITHIN REACH . PER ER NURSE PT. HAD 1 LARGE DIARRHREA PRIOR TO ADM - WILL MONITOR . ON TELE MONITOR - SR DENIES ANY PAIN AT THIS TIME . WILL CONT. TO MONITOR .
--- NOTE | 2020-08-31 20:48 | NUR ---
Patient will be admitted to care of DR TORO. Admited to TELE. Will go to room 113. Belongings list completed. Report to JOSE MARIA CH.
[2020-08-31 21:16] LABS: C-REACTIVE PROTEIN QUANT 15.2 mg/dL (0.0-0.9)
[2020-08-31] MEDS: INSULIN LISPRO SLIDING SCALE 100 UNITS/ML VIAL SUBQ PRN (21:41)
[2020-08-31] MEDS: LOSARTAN 50 MG TAB PO SCH (21:43)
[2020-08-31] MEDS: BLOOD GLUCOSE MONITORING 1 DEV DEV FS SCH (21:43)
[2020-08-31] MEDS: METOPROLOL 25 MG TAB PO SCH (23:00)
--- NOTE | 2020-08-31 23:29 | NUR ---
RELAYING TO DR. TORO THE LAB RESULTS : BUN AND CREA , BNP C REACTIVE PROTEIN , TROPONIN ARE IN HIGH LEVELS - WILL WAIT HIS RESPONSE . Addendum: 08/31/20 at 2343 by Keesha Hull RN DR. TORO TEXTBACK - NO FURTHER ORDER MADE - ROBBIE
[2020-09-01] VITALS: BP 153/64
--- NOTE | 2020-09-01 02:00 | NUR ---
ON O2 SAT MONITORING - O2 SAT WNL - SLEEPING .
[2020-09-01 04:00] VITALS: BP 166/67
--- NOTE | 2020-09-01 04:00 | NUR ---
MADE ROUNDS , NO S/ SX OF ACUTE DISTRESS NOTED . WILL CONT. TO MONITOR
--- NOTE | 2020-09-01 06:00 | NUR ---
O2 SAT WNL . NO COMPLAIN MADE .
[2020-09-01] MEDS: BLOOD GLUCOSE MONITORING 1 DEV DEV FS SCH ×4 (06:56→21:00)
[2020-09-01] MEDS: INSULIN LISPRO SLIDING SCALE 100 UNITS/ML VIAL SUBQ PRN ×3 (06:57→16:34)
--- NOTE | 2020-09-01 07:10 | NUR ---
ENDORSED TO AM SHIFT - PT - STABLE .
--- NOTE | 2020-09-01 07:10 | NUR ---
RECEIVED PATIENT FROM NIGHT NURSE. PATIENT IN BED SLEEPING, CHEST NOTED RISING, RESP EVEN AND UNLABORED ON 2LNC, O2SAT 100% NO ACUTE S/S DISTRESS AT THIS TIME. DROPLET PRECAUTION IN PLACE. CALL LIGHT WITHIN REACH. WILL CONTINUE TO MONITOR.
[2020-09-01 07:44] LABS: BASOPHILS % (AUTO) 0.3 % (0.0-2.0); HEMOGLOBIN 11.7 g/dL (12.0-16.0); LYMPHOCYTES # (AUTO) 0.4 K/uL (2.5-16.5); LYMPHOCYTES % (AUTO) 9.4 % (20.5-51.1); MEAN CORPUSCULAR HEMOGLOBIN 31 pg (27-31); MEAN CORPUSCULAR HGB CONC 33 g/dL (33-37); MEAN CORPUSCULAR VOLUME 92.3 fL (80-94); MONOCYTES # (AUTO) 0.2 K/uL (0.8-1.0); MONOCYTES % (AUTO) 4.8 % (1.7-9.3); NEUTROPHILS # (AUTO) 3.4 K/uL (1.8-7.7); NEUTROPHILS % (AUTO) 85.5 % (42.2-75.2); PLATELET COUNT (AUTO) 122 K/uL (140-450); RED BLOOD CELL COUNT(AUTO) 3.79 MIL/uL (4.20-5.40); RED CELL DISTRIBUTION WIDTH 17.9 % (11.6-13.7); WHITE BLOOD COUNT (AUTO) 3.9 K/uL (4.8-10.8)
[2020-09-01 08:00] VITALS: BP 136/56
[2020-09-01 08:10] LABS: ALBUMIN 3.1 g/dL (3.4-5.0); ANION GAP 18.7 (8-16); CARBON DIOXIDE 25.3 mmol/L (21-32); MAGNESIUM 2.2 mg/dL (1.8-2.4); PHOSPHORUS 5.5 mg/dL (2.5-4.9); TOTAL BILIRUBIN 0.5 mg/dL (0.0-1.0)
[2020-09-01 08:20] LABS: CREATININE 8.6 mg/dL (0.6-1.3)
--- NOTE | 2020-09-01 09:07 | NUR ---
PATIENT HAS BEEN SCREENED AND CATEGORIZED MODERATE NUTRITION RISK. PATIENT WILL BE SEEN WITHIN 3-5 DAYS OF ADMISSION. 09/03/20 09/05/[address]
[2020-09-01] MEDS: INSULIN LANTUS 100 UNITS/ML 10 ML VIAL SUBQ SCH (09:26)
[2020-09-01] MEDS: LOSARTAN 50 MG TAB PO SCH ×2 (09:27→21:00)
[2020-09-01] MEDS: ATORVASTATIN 20 MG TAB PO SCH (09:28)
[2020-09-01] MEDS: PANTOPRAZOLE 40 MG TABEC PO SCH (09:28)
[2020-09-01] MEDS: ASPIRIN 81 MG TAB.CHEW PO SCH (09:28)
[2020-09-01] MEDS: METOPROLOL 25 MG TAB PO SCH ×2 (09:28→21:00)
[2020-09-01] MEDS ORDERED: guaiFENesin DM 200/20 MG-10 ML 10 ML UDC PO PRN (09:30)
--- NOTE | 2020-09-01 09:45 | NUR ---
MORNING ROUTINE MEDICATIONS GIVEN. PATIENT TOLERATED WELL. PATIENT AWAKE AND ALERT, ORIENTED X3. RESP EVEN AND UNLABORED ON 2L NC, O2 SAT 100%. DENIED OF PAIN AT THIS TIME. PATIENT UNDERSTANDS VERY LITTLE THAI BUT ABLE TO MAKE NEEDS KNOWN. RW 20G INTACT AND PATENT, SL. LAV FISTULA FOR HD. ROBITUSSIN GIVEN PRN FOR COUGHS. PATIENT ABLE TO CLEAR HER SECRETIONS WELL. SKIN IS WARM TO TOUCH AND INTACT. SAFETY MEASURES IN PLACE. CALL LIGHT WITHIN REACH. WILL CONTINUE TO MONITOR.
[2020-09-01] MEDS: DEXAMETHASONE 4 MG/ML VIAL IVP SCH (11:37)
[2020-09-01] MEDS: CALCIUM ACETATE 667 MG TAB PO SCH ×2 (11:38→16:13)
--- NOTE | 2020-09-01 11:52 | NUR ---
DC PLANNIN YRS OLD FEMALE PATIENT WAS ADMITTED FROM HOME WITH A DX OF BILATERAL PNEUMONIA R/O COVID. PT HSA HX OF HTN, DM CAD S/P CABG 2019 ,ESRD HEMODIALYSIS ON TTHS. CXR SHOWED BILATERAL PULMONARY OPACITIES . RAPID COVID TEST AND PCR PENDING. STARTED ON IVF, IV ABX ROCEPHIN AND AZITHROMYCIN ,DECADRON . URINE AND BLOOD CULTURE PENDING. PULMO AND NECROLOGIST CONSULTED. DC PLAN TO GO HOME WHEN STABLE. CM TO FOLLOW Addendum: 09/01/20 at 1218 by Lili Jiang CM DC EYELET PUNCH OPERATOR: PATIENT RECEIVES DIALYSIS AT [facility] M,T,TH,SAT AT 8:30 AM. SPOKE TO GAMA AT [facility] AND ASKED IF PATIENT IS COVID POSITIVE IF SHE ABLE TO GET TREATMENT AT THEIR LOCATION. SHE SAID YES THEY CAN ACCOMMODATE HER BUT THEY WOULD HAVE TO ADJUST HER CHAIR TIME. [facility] [address] [place] [id number] Addendum: 09/07/20 at 0954 by Lili Jiang CM DC EYELET PUNCH OPERATOR: CONTACTED [facility] AND SPOKE TO CRYSTAL HER COORDINATOR IS NOT IN AT THE TIME SHE WILL BE CALLING ME BACK AROUND 12:00 PM TO PROVIDE A NEW CHAIR TIME SINCE THE PATIENT IS COVID POSITIVE. Addendum: 09/07/20 at 1150 by Laurie Sheffield RN DC PLANNING: PER PRIMARY NURSE PT DESAT TO 84-88% AND NEEDS O2 5L/NC SATING 92% . DR OWEN ORDERED OCTAVIA JACOBS ,FAXED TO [facility] CM TO FOLLOW Addendum: 09/07/20 at 1202 by Laurie Sheffield RN DC PLANNING: CALLED PT'S DAUGHTER [phone] SPOKE WITH IVAN UPDATED HER WITH THE CLINICALS AND THE ORDER TO [facility]. PT PRIMARY RN PT NEEDS 02 3L AT THIS TIME SATING 92. DC PLAN AWAITING FOR MD JACKSON. JOSE TO FOLLOW Addendum: 09/07/20 at 1528 by Lili Jiang CM IVON EYELET PUNCH OPERATOR: ORDER FOR HOME 02 HAS BEEN FAXED TO [employer] AND [employer]. RECEIVED A CALL FROM SAVI AT [facility] 02 WILL BE DELIVERED TODAY TO BED SIDE Addendum: 09/07/20 at 1653 by Lili Jiang CM IVON MARINO: SPOKE TO [facility] PATIENTS NEW CHAIR TIME IS M,T,TH,SAT AT 7:30 AM
--- NOTE | 2020-09-01 11:55 | NUR ---
PATIENT IN BED AWAKE AND ALERT. BLOOD GLUCOSE 263. INSULIN GIVEN PER SLIDING SCALE. RESP EVEN AND UNLABORED ON 2L NC. DENIED OF PAIN AT THIS TIME. PATIENT ABLE TO MAKE NEEDS KNOWN. CALL LIGHT WITHIN REACH. WILL CONTINUE TO MONITOR.
[2020-09-01 12:00] VITALS: BP 155/67
--- NOTE | 2020-09-01 13:35 | NUR ---
PATIENT IN BED SLEEPING, CHEST NOTED RISING. NO ACUTE S/S DISTRESS. O2 SAT 100% WITH 2L NC. CALL LIGHT WITHIN REACH. WILL CONTINUE TO MONITOR.
--- NOTE | 2020-09-01 15:59 | NUR ---
PATIENT IN BED AWAKE AND ALERT WATCHING TV. RESP EVEN AND UNLABORED. ABLE TO MAKE NEEDS KNOWN. CALL LIGHT WITHIN REACH. WILL CONTINUE TO MONITOR.
[2020-09-01 16:00] VITALS: BP 132/49
[2020-09-01] MEDS ORDERED: DEXAMETHASONE 10 MG/ML VIAL IVP SCH (16:00)
[2020-09-01] MEDS: AZITHROMYCIN 500 MG in DEXTROSE 5% 250 ML IV SCH (16:16)
--- NOTE | 2020-09-01 16:40 | NUR ---
PATIENT IN BED WATCHING TV. BLOOD GLUCOSE 319. INSULIN COVERAGE PER SLIDING SCALE. PATIENT ABLE TO MAKE NEEDS KNOWN. RESP EVEN AND UNLABORED ON 2L NC. CALL LIGHT WITHIN REACH. WILL CONTINUE TO MONITOR.
[2020-09-01 18:31] LABS: CREATINE KINASE MB 1.9 ng/mL (0-3.6)
--- NOTE | 2020-09-01 19:05 | NUR ---
ENDORSED PATIENT TO NIGHT NURSE. PATIENT IN STABLE CONDITION.
--- NOTE | 2020-09-01 19:25 | NUR ---
RECEIVED CONTINUITY CARE AND REPORT FROM AM NURSE.
[2020-09-01 20:00] VITALS: BP 145/65
--- NOTE | 2020-09-01 21:03 | NUR ---
DIALYSIS NURSE AT BEDSIDE [facility]. UPON PHYSICAL ASSESSMENT, PT IS A/OX3, HEAD IS NORMALCEPHALIC, EQUAL BILATERAL EYEBROWS, EYES ARE ROUND AND REACTIVE, SYMMETRICAL SMILE, PMMM, NO JVD NOTED AT THIS TIME. SYMMETRICAL CHEST, BREATHING SPONTANEOUSLY, UN-LABORED OM 2L 02 VIA NC, LUNG TONES ARE CTA. ACTIBE BOWEL TONES NOTED, ABD IS SOFT AND NON-TENDER. SKIN IS WARM, DRY, INTACT, NORMAL SKIN TURGOR NOTED, 20G IV TO LEFT WRIST, PATENT, ASYMPTOMATIC, INTACT. DIALYSIS ACCESS NOTED ON RIGHT ARM. BILATERAL PEDAL PULSES NOTED. PT DENIES PAIN AT THIS TIME. ORIENTED PT TO STAFF AND CALL LIGHT. BED IS IN LOW POSITION. CALL LIGHT IS WITHIN REACH.
--- NOTE | 2020-09-01 23:15 | NUR ---
DIALYSIS NURSE AT BEDSIDE, [facility].
[2020-09-01] MEDS: MORPHINE SULFATE 2 MG/ML SYR IVP PRN (23:45)
[2020-09-02] VITALS: BP 146/58
--- NOTE | 2020-09-02 00:15 | NUR ---
DIALYSIS COMPLETE. 2000ML OF FLUID REMOVED. PT IS IN STABLE CONDITION.
[2020-09-02] MEDS: INSULIN LISPRO SLIDING SCALE 100 UNITS/ML VIAL SUBQ PRN ×3 (00:36→20:57)
--- NOTE | 2020-09-02 00:50 | NUR ---
PT IS SLEEPING. NO SIGNS OF DISTRESS NOTED AT THIS TIME.
--- NOTE | 2020-09-02 02:48 | NUR ---
PT IS WATCHING TV. NO SIGNS OF DISTRESS NOTED.
[2020-09-02 04:00] VITALS: BP 152/59
[2020-09-02] MEDS: BLOOD GLUCOSE MONITORING 1 DEV DEV FS SCH ×4 (06:32→20:53)
--- NOTE | 2020-09-02 07:12 | NUR ---
RECEIVED REPORT FROM AGRICULTURE TECHNICIAN RN FOR CONTINUITY OF CARE. PATIENT ASLEEP IN BED COMFORTABLY. RESPIRATORY EVEN AND UNLABORED. O2 SAT 100% WITH 2L NC. SKIN WARM AND DRY. ABDOMEN SOFT, NON TENDER. NO ACUTE DISTRESS NOTED. SAFETY MEASURES IN PLACE. CALL LIGHT WITHIN REACH. WILL CONTINUE TO MONITOR.
[2020-09-02 08:00] VITALS: BP 153/63
[2020-09-02] MEDS: CALCIUM ACETATE 667 MG TAB PO SCH ×3 (08:08→17:50)
[2020-09-02] MEDS: INSULIN LANTUS 100 UNITS/ML 10 ML VIAL SUBQ SCH (08:09)
[2020-09-02] MEDS: PANTOPRAZOLE 40 MG TABEC PO SCH (08:10)
[2020-09-02] MEDS: ASPIRIN 81 MG TAB.CHEW PO SCH (08:10)
[2020-09-02] MEDS: METOPROLOL 25 MG TAB PO SCH ×2 (08:11→20:37)
[2020-09-02] MEDS: ATORVASTATIN 20 MG TAB PO SCH (08:11)
[2020-09-02] MEDS: LOSARTAN 50 MG TAB PO SCH ×2 (08:11→20:38)
--- NOTE | 2020-09-02 08:11 | NUR ---
SCHEDULE MEDICATIONS GIVEN, EDUCATION PROVIDED, PATIENT VERBALIZED UNDERSTANDING AND TOLERATED WELL. O2 SAT 99% WITH 2L NC. SAFETY MEASURES IN PLACE, WILL CONTINUE TO MONITOR.
[2020-09-02] MEDS ORDERED: ENOXAPARIN 40 MG/0.4 ML SYR SUBQ SCH (09:00)
--- NOTE | 2020-09-02 11:20 | NUR ---
SOCIAL WORK NOTE: Patient's Orientation Unable To Assess Information Provided By IVAN GEORGE - [phone] Comments SW WAS UNABLE TO MEET PATIENT AT BEDSIDE DUE TO MEDICAL CONDITION. SW COMPLETED ASSESSMENT WITH PATIENT'S KASEYER. Boring Machine Operator Vertical, Realtionship and Phone Number IVAN CABALLERO [phone] Healthcare Power of Clarifier Operator Helper No Does Patient Have a POLST No Identifying Problems No Social Work Triggers Is A Social Work Consult Needed No Mandate Report Filed No Explanation Of Identifying Problems PATIENT IS A 70-YEAR-OLD MALE FEMALE ADMITTED FOR PNEUMONIA AND COVID R/O. PATIENT HAS PMHX OF HYPERTENSION, DM, CAD, AND ESRD ON HD. PATIENT'S DAUGHTER REPORTED NO HISTORY OF SUBSTANCE ABUSE OR MENTAL HEALTH. Admitted From Home Pre-Admission Level Of Functioning Status Total Care Level Of Functioning Comment PER DAUGHTER, PATIENT REQUIRES TOTAL ASSISTANCE WITH ADLS. Prior Resources/Services Used In Last 12 Months No Prior Resources Used Prior DME Wheelchair Dialysis Hemodialysis Name And Phone Number of Dialysis Facility [facility] ESRD Outpatient Days ///[facility] ESRD Outpatient Time 0900 Living Situation Apartment Lives With Family Patient Had Caregiver No Home Support No Caregiver Issues Financial Issues No Known Financial Issue Referral To The Financial Counselor Needed No Factors/Needs No D/C Needs Identified Explanation And Or Other Factors Affecting/Possible DC Needs PATIENT'S DAUGHTER STATED SHE WOULD PROVIDE TRANSPORTATION HOME. Pt/Rep Participated In Discharge Plan Yes Patient/Family Agress With Discharge Plan Yes Discharge Plan Comments TENTATIVE DISCHARGE PLAN IS FOR PATIENT TO RETURN HOME. DC Plan Status Initiated
[2020-09-02] MEDS: DEXAMETHASONE 4 MG/ML VIAL IVP SCH (11:53)
[2020-09-02 12:00] VITALS: BP 151/65
--- NOTE | 2020-09-02 12:09 | NUR ---
SCHEDULED MEDICATION GIVEN. BLOOD GLUCOSE LEVEL 125, NO INSULIN COVERAGE NEEDED. SAFETY MEASURES IN PLACE, CALL LIGHT WITHIN REACH. WILL CONTINUE TO MONITOR.
[2020-09-02 16:00] VITALS: BP 151/68
[2020-09-02] MEDS: AZITHROMYCIN 500 MG in DEXTROSE 5% 250 ML IV SCH (16:47)
--- NOTE | 2020-09-02 16:57 | NUR ---
BLOOD GLUCOSE LEVEL 85, NO INSULIN COVERAGE NEEDED. FEED PATIENT WITH BANANA. EDUCATION PROVIDED WITH HYPOGLYCEMIA. SAFETY MEASURES IN PLACE, WILL CONTINUE TO MONITOR.
--- NOTE | 2020-09-02 17:38 | NUR ---
UPDATED PATIENT'S CONDITION TO PATIENT'S DAUGHTER IVAN.
--- NOTE | 2020-09-02 17:50 | NUR ---
ROCEPHIN GIVEN VIA IVPB. EDUCATION PROVIDED. SAFETY MEASURES IN PLACE, CALL LIGHT WITHIN REACH. WILL CONTINUE TO MONITOR.
--- NOTE | 2020-09-02 19:45 | NUR ---
ENDORSED PATIENT TO HUMAN FACTORS ADVISOR LEAD RN FOR CONTINUITY OF CARE. PATIENT IN STABLE CONDITION.
--- NOTE | 2020-09-02 19:46 | NUR ---
RECEIVED REPORT FROM IRIS RNLORENZO. PT AOX3 ON 2L N/C, O2 SAT 96%. NO S/S RESPIRATORY DISTRESS. NO C/O PAIN AT THIS TIME. IV SITE R WRIST 20G, PATENT AND INTACT, INFUSING NS TKO. SAFETY MEASURES IN PLACE. CALL LIGHT WITHIN REACH. WILL CONTINUE TO MONITOR
[2020-09-02 20:00] VITALS: BP 156/63
--- NOTE | 2020-09-02 21:02 | NUR ---
ADMINISTERED SCHEDULED MEDS. GAVE 6 UNITS INSULIN PER SLIDING SCALE FOR PT BLOOD SUGAR 285. PT TOLERATED WELL. WILL CONTINUE TO MONITOR
--- NOTE | 2020-09-02 22:30 | NUR ---
PT AWAKE IN BED, WATCHING TELEVISION. DENIES PAIN, DENIES SOB. NO DISTRESS NOTED. WILL CONTINUE TO MONITOR
[2020-09-03] VITALS: BP 143/68
--- NOTE | 2020-09-03 00:30 | NUR ---
PT ASLEEP IN BED. RESPIRATIONS EVEN AND UNLABORED. NO DISTRESS NOTED. WILL CONTINUE TO MONITOR
--- NOTE | 2020-09-03 02:55 | NUR ---
PT REFUSED TO HAVE CONVALESCENT PLASMA. EDUCATED PT ON THE BENEFITS OF RECEIVING THE CONVALESCENT PLASMA. PT STILL REFUSED.
[2020-09-03 04:00] VITALS: BP 145/60
[2020-09-03] MEDS: BLOOD GLUCOSE MONITORING 1 DEV DEV FS SCH ×4 (05:14→21:00)
--- NOTE | 2020-09-03 05:35 | NUR ---
PT BLOOD SUGAR 133. NO INSULIN COVERAGE NEEDED PER SLIDING SCALE
[2020-09-03 07:02] LABS: BASOPHILS % (AUTO) 0.2 % (0.0-2.0); HEMATOCRIT 33.8 % (36-48); HEMOGLOBIN 11.4 g/dL (12.0-16.0); LYMPHOCYTES # (AUTO) 0.7 K/uL (2.5-16.5); LYMPHOCYTES % (AUTO) 8.2 % (20.5-51.1); MEAN CORPUSCULAR HEMOGLOBIN 31 pg (27-31); MEAN CORPUSCULAR HGB CONC 34 g/dL (33-37); MEAN CORPUSCULAR VOLUME 91.4 fL (80-94); MONOCYTES # (AUTO) 0.6 K/uL (0.8-1.0); MONOCYTES % (AUTO) 6.6 % (1.7-9.3); NEUTROPHILS # (AUTO) 7.2 K/uL (1.8-7.7); PLATELET COUNT (AUTO) 160 K/uL (140-450); RED CELL DISTRIBUTION WIDTH 18.3 % (11.6-13.7); WHITE BLOOD COUNT (AUTO) 8.4 K/uL (4.8-10.8)
--- NOTE | 2020-09-03 07:10 | NUR ---
ENDORSED PT TO DAY RN FOR CONTINUITY OF CARE. PT IS IN STABLE CONDITION
--- NOTE | 2020-09-03 07:15 | NUR ---
REC'D BEDSIDE ENDORSEMENT FROM NIGHTSHIFT NURSE. WILL CONT W/ PLAN OF CARE.
[2020-09-03 07:32] LABS: ANION GAP 16.4 (8-16); CARBON DIOXIDE 26.7 mmol/L (21-32); POTASSIUM 4.1 mmol/L (3.5-5.1)
--- NOTE | 2020-09-03 07:54 | NUR ---
RECEIVED CALL FROM LAB THAT PATIENT CR 7.04, BUN 64, AND CA 8.2. AWARE. PT TO RECIEVE HD TODAY. WILL CONTINUE TO MONITOR
[2020-09-03 08:00] VITALS: BP 157/77
[2020-09-03] MEDS: CALCIUM ACETATE 667 MG TAB PO SCH ×3 (08:00→16:38)
--- NOTE | 2020-09-03 08:10 | NUR ---
MEDICATION BEING HELD, PATIENT IN HD. SAFETY MEASURES IN PLACE. MONITORING DONE BY HD NURSE AT BEDSIDE.
--- NOTE | 2020-09-03 08:28 | NUR ---
HD NURSE AT BEDSIDE. REPORT GIVEN. PT TO RECIEVED HD TODAY. BP MEDS HELD. SAFETY MEASURES IN PLACE. WILL CONTINUE TO MONITOR
[2020-09-03] MEDS: LOSARTAN 50 MG TAB PO SCH ×2 (08:37→21:00)
[2020-09-03] MEDS: METOPROLOL 25 MG TAB PO SCH ×2 (08:37→21:00)
[2020-09-03] MEDS: INSULIN LANTUS 100 UNITS/ML 10 ML VIAL SUBQ SCH (08:38)
[2020-09-03] MEDS: ATORVASTATIN 20 MG TAB PO SCH (08:40)
[2020-09-03] MEDS: ASPIRIN 81 MG TAB.CHEW PO SCH (08:40)
[2020-09-03] MEDS: PANTOPRAZOLE 40 MG TABEC PO SCH (08:40)
[2020-09-03] MEDS: DEXAMETHASONE 4 MG/ML VIAL IVP SCH (11:00)
--- NOTE | 2020-09-03 11:30 | NUR ---
PT BLOOD SUGAR IS 186. PRN INSULIN WILL BE ADMINISTERED PER MD ORDER WITH NEXT MEAL. WILL CONTINUE TO MONITOR
[2020-09-03 12:00] VITALS: BP 100/45
[2020-09-03] MEDS: INSULIN LISPRO SLIDING SCALE 100 UNITS/ML VIAL SUBQ PRN (12:07)
--- NOTE | 2020-09-03 12:45 | NUR ---
ADMINISTERED PRN INSULIN PRESCRIBED PER MD ORDER. PT TOLERATED WELL. MEDICATION EDUCATION PERFORMED. PT VERBALIZED UNDERSTANDING. SAFETY MEASURES IN PLACE. WILL CONTINUE TO MONITOR
--- NOTE | 2020-09-03 13:37 | NUR ---
ADMINISTERED SCHED MED PRESCRIBED PER MD ORDER. PT TOLERATED WELL. MEDICATION EDUCATION PERFORMED. PT VERBALIZED UNDERSTANDING. SAFETY MEASURES IN PLACE. WILL CONTINUE TO MONITOR
[2020-09-03] MEDS ORDERED: LOPERAMIDE 2 MG CAP PO PRN ×2 (14:55→16:05)
[2020-09-03] MEDS ORDERED: LOPERAMIDE 2 MG CAP PO ONE (14:55)
[2020-09-03] MEDS: ACETAMINOPHEN 325 MG TAB PO PRN (15:44)
--- NOTE | 2020-09-03 15:45 | NUR ---
ADMINISTERED SCHED MED PRESCRIBED PER MD ORDER. PT TOLERATED WELL. MEDICATION EDUCATION. PT VERBALIZED UNDERSTANDING. PT HAS LOW GRADE FEVER. PRN TYLENOL ADMINISTERED PRESCRIBED PER MD ORDER. WILL CONTINUE TO MONITOR
[2020-09-03 16:00] VITALS: BP 222/77
--- NOTE | 2020-09-03 16:30 | NUR ---
PT BLOOD SUGAR IS 122. NO INSULIN NEEDED AT THIS TIME. SAFETY MEASURES IN PLACE. WILL CONTINUE TO MONITOR
--- NOTE | 2020-09-03 16:47 | NUR ---
ADMINISTERED PRESCRIBED AND PRN PAIN MEDS PER MD ORDER. PATIENT TOLERATED WELL, REINFORCEMENT NEEDED. SAFETY MEASURES IN PLACE. WILL CONT TO MONITOR
--- NOTE | 2020-09-03 18:30 | NUR ---
HOURLY ROUND PERFORMED. PATIENT IN BED W/ MILD PAIN/CRAMPING. COMPLAINS PAIN IN IV, NO BLOOD RETURN AND UNABLE TO FLUSH. WILL REMOVE AND REPLACE. SAFETY MEASURES IN PLACE. WILL CONT TO MONITOR.
--- NOTE | 2020-09-03 19:02 | NUR ---
PATIENT COMPLAINED OF IV PAIN, UNABLE TO FLUSH AND NO BLOOD RETURN. REMOVED RW 20G IV. CALLED ED TO REPLACE. NEW IV PLACEMENT BY ED RA 24G SALINE LOCKED. CLEAN, DRY AND INTACT. SAFETY MEASURES IN PLACE. WILL CONT TO MONITOR.
--- NOTE | 2020-09-03 19:30 | NUR ---
PT PULLED OUT IV DURING SHIFT REPORT. ENDORSED TO NIGHTSHIFT. PT IS STABLE.
[2020-09-03 20:00] VITALS: BP 159/74
--- NOTE | 2020-09-03 20:00 | NUR ---
PT IN BED AWAKE AND ALERT AOX1-2. PT HAS LAV SHUNT THRILL AND BRUIT FELT. PT HAS 02 RUNNING AT 2 LITERS N/C. ALL FALLS PRECAUTIONS IN PLACE AND V/S FOLLOWS: T 98.2 P 91 R 18 B/P 159/74 02 94%
[2020-09-03] MEDS ORDERED: CRUSHER, PILL MC ONE (21:58)
--- NOTE | 2020-09-03 22:00 | NUR ---
PT FINGERSTICK WAS 29. SHE WAS GIVEN OJ WITH SUGAR, WELL 1 CONTAINER OF PUDDING. PT WAS PROVIDED IV SITE ON RIGHT WRIST 24 GUAGE AND D5W WAS PUSHED VIA IV SITE. PT ALSO GIVEN ORDERED COZAAR, LOPRESSOR AND HEPARIN. MEDICATION EXPLAINED PURPOSES AND SIDE EFFECTS EXPLAINED THROUGH CINDER CRUSHER OPERATOR. PT UNABLE TO COMPREHEND. RETAKE OF FINGERSTICK IS 235. NO COVERAGE GIVEN. WILL RETAKE FINGERSTICK LATER. PT GIVEN PO/PRN NORCO FOR PAIN IN LEFT SIDE AND ABDOMEN. ALL OTHER REQUESTS ATTENDED BY STAFF.
--- NOTE | 2020-09-03 23:30 | NUR ---
PT IN BED ASLEEP NO S/S OF PAIN OR DISTRESS NOTED. V/S FOLLOWS: T 97.9 P 63 R 18 B/P 139/69 02 100% ON 2 LITERS VIA N/C. ALL FALLS PRECAUTIONS IN PLACE.
[2020-09-04] VITALS: BP 139/69
[2020-09-04 04:00] VITALS: BP 150/61
--- NOTE | 2020-09-04 04:15 | NUR ---
PT IN BED SHE WAS TURNED, CHANGED AND REPOSITIONED IN BED. V/S FOLLOWS: T 100.2 P 101 R 20 B/P 150/61 02 94% WITH 2 LITERS VIA N/C. ALL FALLS PREVENTION IN PLACE.
--- NOTE | 2020-09-04 05:30 | NUR ---
PT GIVEN COOLING MEASURES OF ICE PACKS FOR INCREASED TEMP WELL TYLENOL FOR MILD DISCOMFORT. FINGERSTICK IS 116 NO HUMALOG COVERAGE NEEDED. ALL FALLS PREVENTION IN PLACE.
[2020-09-04] MEDS: BLOOD GLUCOSE MONITORING 1 DEV DEV FS SCH ×4 (05:39→20:27)
[2020-09-04] MEDS: ACETAMINOPHEN 325 MG TAB PO PRN (05:40)
--- NOTE | 2020-09-04 07:30 | NUR ---
RECEIVED PT ON BED .NO CO PAIN NOR ANY DISCOMFORT.NO FEVER.PT CAN TURN BY HERSELF.INSTRUCTED TO TURN Q 2 HOURS TO PREVENT BEDSORE.WILL MONITOR.
[2020-09-04 07:48] LABS: ALBUMIN 2.7 g/dL (3.4-5.0); ANION GAP 14.8 (8-16); CARBON DIOXIDE 27.7 mmol/L (21-32); POTASSIUM 3.5 mmol/L (3.5-5.1); TOTAL BILIRUBIN 0.5 mg/dL (0.0-1.0)
[2020-09-04 07:53] LABS: CREATININE 4.5 mg/dL (0.6-1.3)
[2020-09-04 08:00] VITALS: BP 105/45
[2020-09-04] MEDS: CALCIUM ACETATE 667 MG TAB PO SCH ×3 (08:50→17:28)
[2020-09-04] MEDS: ASPIRIN 81 MG TAB.CHEW PO SCH (08:52)
[2020-09-04] MEDS: ATORVASTATIN 20 MG TAB PO SCH (08:53)
[2020-09-04] MEDS: LOSARTAN 50 MG TAB PO SCH ×2 (08:53→20:27)
[2020-09-04] MEDS: METOPROLOL 25 MG TAB PO SCH ×2 (08:54→20:27)
[2020-09-04] MEDS: INSULIN LANTUS 100 UNITS/ML 10 ML VIAL SUBQ SCH (08:58)
[2020-09-04] MEDS: PANTOPRAZOLE 40 MG TABEC PO SCH (09:00)
[2020-09-04 09:02] LABS: BASOPHILS % (AUTO) 0.1 % (0.0-2.0); HEMATOCRIT 31.8 % (36-48); HEMOGLOBIN 10.7 g/dL (12.0-16.0); LYMPHOCYTES # (AUTO) 0.4 K/uL (2.5-16.5); LYMPHOCYTES % (AUTO) 3.4 % (20.5-51.1); MEAN CORPUSCULAR HEMOGLOBIN 31 pg (27-31); MEAN CORPUSCULAR HGB CONC 34 g/dL (33-37); MEAN CORPUSCULAR VOLUME 91.2 fL (80-94); MONOCYTES # (AUTO) 0.3 K/uL (0.8-1.0); MONOCYTES % (AUTO) 2.5 % (1.7-9.3); NEUTROPHILS # (AUTO) 10.2 K/uL (1.8-7.7); PLATELET COUNT (AUTO) 139 K/uL (140-450); RED BLOOD CELL COUNT(AUTO) 3.48 MIL/uL (4.20-5.40); WHITE BLOOD COUNT (AUTO) 10.8 K/uL (4.8-10.8)
[2020-09-04 12:00] VITALS: BP 99/45
[2020-09-04] MEDS: DEXAMETHASONE 4 MG/ML VIAL IVP SCH (12:17)
--- NOTE | 2020-09-04 13:59 | NUR ---
09/04/20 RD INITIAL ASSESSMENT COMPLETED PLEASE REFER TO NUTRITION ASSESSMENT UNDER CARE ACTIVITY FOR ESTIMATED NUTRITIONAL NEEDS. 1. CONTINUE PUREED, CCHO 60 GM DIET TOLERATED 2. RD TO FOLLOW-UP 3-5 DAYS, MODERATE RISK ABEL GRIDER RD
[2020-09-04 16:00] VITALS: BP 123/52
[2020-09-04] MEDS: INSULIN LISPRO SLIDING SCALE 100 UNITS/ML VIAL SUBQ PRN ×2 (17:37→20:36)
--- NOTE | 2020-09-04 19:20 | NUR ---
RECEIVED BEDSIDE REPORT FROM DAY SHIFT NURSE FOR CONTINUITY OF CARE. PT IS AWAKE AND ALERT. ON 2L O2 NC WITH BREATHING UNLABORED. AV FISTULA IN PLACE, BP AND BLOOD DRAW WILL NOT BE TAKEN ON THE LEFT ARM. HD ON ,,. PT IS ANURIC STATED BY DAY SHIFT NURSE. PT IS ON BEDREST AND FALL PRECAUTIONS IN PLACE. SKIN IS WARM,DRY, AND INTACT. IV IS IN THE RIGHT WRIST 24 GAUGE, SALINE LOCKED. IV IS PATENT AND FLUSHING. PT'S SARS COV WAS INDETERMINATE. DROPLET PRECAUTIONS IN PLACE. PLAN OF CARE DISCUSSED. WILL CONTINUE TO MONITOR.
--- NOTE | 2020-09-04 19:25 | NUR ---
REPORT GIVEN TO MARKIE LEVIN FOR CONTINUITY OF CARE
[2020-09-04 20:00] VITALS: BP 165/70
--- NOTE | 2020-09-04 20:36 | NUR ---
PT'S BS IS 218. PT WAS GIVEN 4 UNITS HUMALOG PER SLIDING SCALE. MEDICATION EDUCATION WAS PROVIDED. PT VERBALIZED UNDERSTANDING. PT ASSISTED WITH DINNER AND PT FINISHED ENTIRE MEAL. PT IS STABLE. CALL LIGHT IS WITHIN REACH AND CELL PHONE IS AT BEDSIDE.
--- NOTE | 2020-09-04 22:30 | NUR ---
PT IS SLEEPING IN SEMI FOWLERS POSITION. NO DISTRESS NOTED. O2 SAT IS 98% ON 2L O2 NC. BREATHING UNLABORED. BED IS IN THE LOWEST POSITION AND CALL LIGHT IS WITHIN REACH. PT IS STABLE.
[2020-09-05] VITALS: BP 155/69
--- NOTE | 2020-09-05 00:30 | NUR ---
PT IS AWAKE AND LAYING IN SEMI FOWLERS POSITION. NO DISTRESS NOTED. NO COUGHING OR SOB. O2 SAT IS 97% ON 2L O2 NC. BEDSIDE TABLE IS WITHIN REACH. PT DENIES PAIN OR DISCOMFORT. WILL CONTINUE TO MONITOR.
--- NOTE | 2020-09-05 01:30 | NUR ---
MADE ROUNDS ON PT. SHE IS SLEEPING IN SEMI FOWLERS POSITION. NO RESPIRATORY DISTRESS. CHEST RISE AND FALL IS SYMMETRICAL. IV IS INTACT IN THE RIGHT WRIST. WILL CONTINUE TO MONITOR.
--- NOTE | 2020-09-05 03:26 | NUR ---
PT IS STILL ASLEEP. NO DISTRESS OR PAIN APPARENT. CHEST IS MOVING EQUALLY. BREATHING IS UNLABORED. FALL PRECAUTIONS ARE IN PLACE. WILL MONITOR PT.
[2020-09-05 04:00] VITALS: BP 152/79
--- NOTE | 2020-09-05 05:30 | NUR ---
PT IS AWAKE AND WATCHING TV IN BED. DIAPER IS STILL DRY AND IN PLACE BUT IT WAS CHANGED ANYWAY. LINENS WERE ALSO CHANGED AND BLANKETS WERE PROVIDED FOR COMFORT. PT WAS GIVEN WATER AND JUICE REQUESTED. NEEDS HAVE BEEN MET.
[2020-09-05] MEDS: BLOOD GLUCOSE MONITORING 1 DEV DEV FS SCH ×4 (05:51→20:06)
[2020-09-05] MEDS: INSULIN LISPRO SLIDING SCALE 100 UNITS/ML VIAL SUBQ PRN ×4 (05:51→20:05)
--- NOTE | 2020-09-05 05:51 | NUR ---
PT'S BS READING WAS 176 AND 2 UNITS OF HUMALOG INSULIN WAS GIVEN. EDUCATION WAS GIVEN REGARDING INSULIN. PT VERBALIZED UNDERSTANDING. PT IS STABLE.
--- NOTE | 2020-09-05 07:10 | NUR ---
ENDORSED PT TO DAY SHIFT NURSE FOR CONTINUITY OF CARE. PT IS STABLE AT THIS TIME. PLAN OF CARE DISCUSSED.
--- NOTE | 2020-09-05 07:11 | NUR ---
REPORT RECEIVED FROM MARKETING GRAPHICS SPECIALIST NURSE. PATIENT IN STABLE CONDITION.
[2020-09-05 08:00] VITALS: BP 174/75
[2020-09-05] MEDS: CALCIUM ACETATE 667 MG TAB PO SCH ×3 (08:00→17:57)
[2020-09-05 08:01] LABS: BASOPHILS % (AUTO) 0.1 % (0.0-2.0); HEMOGLOBIN 9.7 g/dL (12.0-16.0); LYMPHOCYTES # (AUTO) 0.4 K/uL (2.5-16.5); LYMPHOCYTES % (AUTO) 3.9 % (20.5-51.1); MEAN CORPUSCULAR HEMOGLOBIN 31 pg (27-31); MEAN CORPUSCULAR HGB CONC 34 g/dL (33-37); MEAN CORPUSCULAR VOLUME 92.9 fL (80-94); MONOCYTES # (AUTO) 0.3 K/uL (0.8-1.0); NEUTROPHILS # (AUTO) 10.1 K/uL (1.8-7.7); PLATELET COUNT (AUTO) 126 K/uL (140-450); RED BLOOD CELL COUNT(AUTO) 3.12 MIL/uL (4.20-5.40); RED CELL DISTRIBUTION WIDTH 18.6 % (11.6-13.7); WHITE BLOOD COUNT (AUTO) 10.8 K/uL (4.8-10.8)
[2020-09-05 08:07] LABS: ANION GAP 15.7 (8-16); CARBON DIOXIDE 27.3 mmol/L (21-32)
[2020-09-05 08:09] LABS: CREATININE 6.1 mg/dL (0.6-1.3)
[2020-09-05] MEDS: INSULIN LANTUS 100 UNITS/ML 10 ML VIAL SUBQ SCH (09:00)
[2020-09-05] MEDS: LOSARTAN 50 MG TAB PO SCH ×2 (09:00→20:06)
[2020-09-05] MEDS: METOPROLOL 25 MG TAB PO SCH ×2 (09:00→20:05)
[2020-09-05] MEDS: ATORVASTATIN 20 MG TAB PO SCH (09:00)
[2020-09-05] MEDS: ONDANSETRON 4 MG/2 ML VIAL IVP PRN (09:12)
--- NOTE | 2020-09-05 09:12 | NUR ---
PATIENT VOMITTED. PRN ZOFRAN GIVEN. PATIENT TOLERATED IT WELL. WILL CONTINUE TO MONITOR PATIENT.
--- NOTE | 2020-09-05 10:00 | NUR ---
PATIENT 0900 LANTUS NOT GIVEN. PATIENT VOMITTED AND BS AT 0730 WAS 176.
[2020-09-05] MEDS: DEXAMETHASONE 4 MG/ML VIAL IVP SCH (11:54)
--- NOTE | 2020-09-05 11:54 | NUR ---
SCHEDULED MEDICATIONS GIVEN. PATIENT TOLERATED IT WELL. WILL CONTINUE TO MONITOR PATIENT.
[2020-09-05] MEDS: PANTOPRAZOLE 40 MG TABEC PO SCH (12:30)
[2020-09-05] MEDS: ASPIRIN 81 MG TAB.CHEW PO SCH (12:30)
--- NOTE | 2020-09-05 16:20 | NUR ---
PATIENT FINISHED HEMODIALYSIS. 2.6 L REMOVED. PATIENT RESTING COMFORTABLY IN BED, NO COMPLAINTS AT THIS TIME.
--- NOTE | 2020-09-05 19:09 | NUR ---
REPORT ENDORSED TO LOCKSTITCH LINING MAKER.
--- NOTE | 2020-09-05 19:10 | NUR ---
RECEIVED BEDSIDE REPORT FROM DAY SHIFT NURSE FOR CONTINUITY OF CARE. PT IS AWAKE AND ALERT, A&OX4. ON 2L O2 NC WITH BREATHING UNLABORED. MED-SURG PATIENT. PT IS ANURIC WITH DRY DIAPER IN PLACE. RECEIVED HEMODIALYSIS TODAY AND THEY REMOVED 2.6 LITERS STATED BY DAY SHIFT RN. SKIN IS WARM, DRY, AND INTACT. IV IS IN THE RIGHT WRIST 24 GAUGE SALINE LOCKED. AV FISTULA IN THE LEFT UPPER ARM. PT IS STABLE AT THIS TIME. DROPLET PRECAUTIONS IN PLACE AND FALL PRECAUTIONS IN PLACE. PLAN OF CARE DISCUSSED. BED IS IN THE LOWEST POSITION AND CALL LIGHT IS WITHIN REACH.
[2020-09-05 20:00] VITALS: BP 185/74
--- NOTE | 2020-09-05 20:00 | NUR ---
PT'S BP IS 185/74 AND HR WAS 97. PT WAS GIVEN SCHEDULED BP MEDS METOPROLOL AND LOSARTAN. WILL MONITOR PT'S BP AND CALL FOR ORDERS NECESSARY.
--- NOTE | 2020-09-05 20:05 | NUR ---
PT WAS GIVEN 4 UNITS OF HUMALOG INSULIN PER SLIDING SCALE FOR A BS READING OF 250. MEDICATION EDUCATION WAS PROVIDED. PT IS STABLE.
--- NOTE | 2020-09-05 22:00 | NUR ---
PT IS AWAKE AND ALERT, A&OX4. PT IS COUGHING INTERMITTENTLY. PRODUCTIVE COUGH WITH SCANT AMOUNT OF CLEAR SPUTUM. BREATHING IS UNLABORED AND PT IS STABLE.
[2020-09-06] MEDS: ONDANSETRON 4 MG/2 ML VIAL IVP PRN (00:05)
--- NOTE | 2020-09-06 00:05 | NUR ---
PT HAD A EPISODE OF EMESIS. SMALL AMOUNT OF VOMIT, BROWN IN COLOR. PT APPEARS TO BE IN DISTRESS. O2 SAT IS 95% AND BREATHING UNLABORED. PT WAS GIVEN ZOFRAN FOR NAUSEA AND VOMITING. WILL MONITOR PT.
--- NOTE | 2020-09-06 01:00 | NUR ---
IV IS DISLODGED AND NO LONGER PATENT. IV IS NOT FLUSHING AND PT STATES THERE IS PAIN AT THE SITE. RIGHT WRIST IV WAS REMOVED AND CANNULA WAS INTACT. NEW IV WAS PLACED PER ER NURSE IN THE RIGHT FOREARM 20 GAUGE. NEW IV IS PATENT AND INTACT.
--- NOTE | 2020-09-06 01:20 | NUR ---
PT'S BP WAS 198/[address] MOORE CUSTOMER GREETER FOR DR. TORO WAS CONTACTED AND INFORMED ABOUT THE FINDING. DOCTOR ORDERED HYDRALAZINE 10 MG IVP Q4H PRN FOR SBP OVER 160. ORDER WAS PLACED AND WILL ADMINISTER ONCE VERIFIED.
[2020-09-06] MEDS ORDERED: hydrALAZINE 20 MG/ML VIAL IVP PRN (01:30)
--- NOTE | 2020-09-06 01:35 | NUR ---
CALLED [facility] TO SPEED UP THE PROCESS OF VERIFYING THE BP MEDICATION. DEANA FROM [facility] SAID HE WILL VERIFY THE MEDICATION SOON. WILL KEEP CHECKING TO SEE WHEN MEDICATION IS ACTIVE AND AVAILABLE TO GIVE PT.
--- NOTE | 2020-09-06 02:01 | NUR ---
PT WAS GIVEN HYDRALAZINE FOR ELEVATED BP. BP WAS 198/83 AND HR 95. WILL REASSESS.
--- NOTE | 2020-09-06 03:55 | NUR ---
MADE ROUNDS ON PT. SHE WAS SLEEPING IN SEMI FOWLERS POSITION. NO DISTRESS NOTED. CHEST RISE AND FALL WAS SYMMETRICAL. O2 SAT IS 95% ON 2L O2 NC. BED IS IN THE LOWEST POSITION AND BED ALARM IS ON. WILL CONTINUE TO MONITOR PT.
[2020-09-06 04:00] VITALS: BP 147/73
--- NOTE | 2020-09-06 04:00 | NUR ---
PT IS AWAKE AND ALERT WITH 2 LITERS VIA N/C V/S FOLLOWS: T 97.7 P 76 R 15 B/P 159/80 02 96% WITH 2 LITERS VIA N/C. PT GIVEN ORDERED HEPARIN SHOT.ALL FALLS PRECAUTIONS IN PLACE. Addendum: 09/07/20 at 0620 by Kenisha Aaron RN DATE SHOULD BE 09/06 NOT 09/07
[2020-09-06] MEDS: ACETAMINOPHEN 325 MG TAB PO PRN (06:13)
--- NOTE | 2020-09-06 06:13 | NUR ---
PT'S TEMP WAS 100.6 DEGREES FAHRENHEIT. PT WAS GIVEN TYLENOL FOR FEVER. COOLING MEASURES WERE ALSO IMPLEMENTED.
[2020-09-06] MEDS: BLOOD GLUCOSE MONITORING 1 DEV DEV FS SCH ×4 (06:27→21:00)
--- NOTE | 2020-09-06 06:30 | NUR ---
BS READING WAS TAKEN AND BS WAS 68. PER SLIDING SCALE NO INSULIN COVERAGE IS NEEDED. PT WAS GIVEN ORANGE JUICE AND APPLESAUCE. PT FINISHED BOTH OF THESE ITEMS COMPLETELY.
--- NOTE | 2020-09-06 07:15 | NUR ---
ENDORSED PT TO DAY SHIFT NURSE FOR CONTINUITY OF CARE. PT IS STABLE AT THIS TIME. PLAN OF CARE DISCUSSED. O2 SAT IS 93% ON 4L O2 NC. BREATHING IS UNLABORED.
--- NOTE | 2020-09-06 07:15 | NUR ---
RECEIVED REPORT FROM NIGHT NURSE FOR CONTINUITY OF CARE, PT IS STABLE, AAOX4, PT ON 4L OXYGEN VIA NC, PT HAS RIGHT FA 20G SALINE LOCK, PT HAS LEFT AV SHUNT FOR DIALYSIS, SAFETY MEASURES IN PLACE, WILL CONTINUE TO MONITOR.
[2020-09-06 08:00] VITALS: BP 119/56
[2020-09-06 08:11] LABS: BASOPHILS % (AUTO) 0.1 % (0.0-2.0); EOSINOPHILS % (AUTO) 0.1 % (0.0-4.0); HEMOGLOBIN 9.9 g/dL (12.0-16.0); LYMPHOCYTES # (AUTO) 0.5 K/uL (2.5-16.5); LYMPHOCYTES % (AUTO) 4.8 % (20.5-51.1); MEAN CORPUSCULAR HEMOGLOBIN 31 pg (27-31); MEAN CORPUSCULAR HGB CONC 34 g/dL (33-37); MEAN CORPUSCULAR VOLUME 91.5 fL (80-94); MONOCYTES # (AUTO) 0.5 K/uL (0.8-1.0); MONOCYTES % (AUTO) 4.8 % (1.7-9.3); NEUTROPHILS # (AUTO) 9.2 K/uL (1.8-7.7); NEUTROPHILS % (AUTO) 90.2 % (42.2-75.2); PLATELET COUNT (AUTO) 139 K/uL (140-450); RED BLOOD CELL COUNT(AUTO) 3.17 MIL/uL (4.20-5.40); RED CELL DISTRIBUTION WIDTH 18.8 % (11.6-13.7); WHITE BLOOD COUNT (AUTO) 10.2 K/uL (4.8-10.8)
[2020-09-06 08:13] LABS: ANION GAP 15.1 (8-16); CARBON DIOXIDE 28.6 mmol/L (21-32); POTASSIUM 3.7 mmol/L (3.5-5.1)
[2020-09-06 08:28] LABS: CREATININE 4.5 mg/dL (0.6-1.3)
[2020-09-06] MEDS: METOPROLOL 25 MG TAB PO SCH ×2 (08:41→22:09)
[2020-09-06] MEDS: CALCIUM ACETATE 667 MG TAB PO SCH ×3 (08:42→17:40)
[2020-09-06] MEDS: LOSARTAN 50 MG TAB PO SCH ×2 (08:42→22:08)
[2020-09-06] MEDS: PANTOPRAZOLE 40 MG TABEC PO SCH (08:42)
[2020-09-06] MEDS: ASPIRIN 81 MG TAB.CHEW PO SCH (08:43)
[2020-09-06] MEDS: ATORVASTATIN 20 MG TAB PO SCH (08:48)
[2020-09-06] MEDS: INSULIN LANTUS 100 UNITS/ML 10 ML VIAL SUBQ SCH (08:54)
--- NOTE | 2020-09-06 08:55 | NUR ---
ADMINISTERED SCHEDULED MEDICATION, MEDICATION EDUCATION PROVIDED, PT VERBALIZED UNDERSTANDING, PT TOLERATED WELL, PT IS STABLE, WILL CONTINUE TO MONITOR.
[2020-09-06] MEDS: DEXAMETHASONE 4 MG/ML VIAL IVP SCH (11:50)
--- NOTE | 2020-09-06 11:57 | NUR ---
ADMINISTERED SCHEDULED MEDICATION, MEDICATION EDUCATION PROVIDED, PT VERBALIZED UNDERSTANDING, PT TOLERATED WELL, PT IS STABLE, WILL CONTINUE TO MONITOR.
--- NOTE | 2020-09-06 12:37 | NUR ---
ADMINISTERED SCHEDULED MEDICATION, MEDICATION EDUCATION PROVIDED, PT TOLERATED WELL, PT IS STABLE, CALL LIGHT WITHIN REACH, WILL CONTINUE TO MONITOR.
[2020-09-06 16:00] VITALS: BP 144/62
[2020-09-06] MEDS: INSULIN LISPRO SLIDING SCALE 100 UNITS/ML VIAL SUBQ PRN ×2 (17:37→21:59)
--- NOTE | 2020-09-06 17:43 | NUR ---
ADMINISTERED 2 UNITS OF HUMALOG FOR BLOOD GLUCOSE OF 192, ADMINISTERED SCHEDULED MEDICATION, MEDICATION EDUCATION PROVIDED, PT VERBALIZED UNDERSTANDING, PT TOLERATED WELL, PT IS STABLE, CALL LIGHT WITHIN REACH, WILL CONTINUE TO MONITOR
--- NOTE | 2020-09-06 19:10 | NUR ---
ENDORSE PT TO NIGHT NURSE FOR CONTINUITY OF CARE, PT IS STABLE
--- NOTE | 2020-09-06 19:30 | NUR ---
RECEIVED REPORT FROM DAYSHIFT NURSE AT BEDSIDE FOR CONTINUITY OF CARE, PT IN STABLE CONDITION.
[2020-09-06 20:00] VITALS: BP 153/71
--- NOTE | 2020-09-06 20:00 | NUR ---
PT LYING IN BED AOX3, SHE HAS A R/FA 20 GAUGE IV SITE THAT IS SALINE LOCKED AT THIS TIME. SHE HAS A LEFT AV SHUNT THRILL AND BRUIT FELT. PT FINGERSTICK IS 268 WILL PROVIDE COVERAGE PER S/S. PT RESPIRATIONS EVEN AND UNLABORED ON 2 LITERS VIA N/C. V/S FOLLOWS: T 97.7 P 83 R 17 B/P 153/71 02 95% WITH 2 LITERS VIA N/C. PT DENIES ANY PAIN OR DISTRESS NOTED ALL FALLS PRECAUTIONS IN PLACE.
--- NOTE | 2020-09-06 21:30 | NUR ---
PT GIVEN ALL DUE MEDS OF COZAAR, LOPRESSOR AND HEPARIN. EDUCATION REGARDING MEDICATION, PURPOSES AND SIDE EFFECTS PROVIDED AT BEDSIDE, PT ACKNOWLEDGED UNDERSTANDING. PT GIVEN 6 UNITS OF HUMALOG COVERAGE PER S/S. SPOKE WITH ABIMAEL REGARDING HD, NO ORDER NOTED FOR TOMORROW, PT HAS CONSULT WITH MD RUIZ A UROLOGIC SURGEON PENDING. ALL ORDERED FALLS PRECAUTIONS IN PLACE.
--- NOTE | 2020-09-06 22:30 | NUR ---
PT IN BED ASLEEP 02 IS AT 97 % WITH 2 LITERS VIA N/C. NO S/S OF PAIN OR DISTRESS NOTED, ALL FALLS PRECAUTIONS IN PLACE.
[2020-09-07] VITALS: BP 142/62
--- NOTE | 2020-09-07 00:30 | NUR ---
PT RESTING IN BED BUT AROUSABLE TO NAME AND LIGHT TOUCH. V/S FOLLOWS; T 97.7 P 74 R 20 B/P 142/62 02 WAS 84-86 % BUMPED UP TO 3 LITERS VIA N/C PT IS STATING AT 90% ON 3 LITERS VIA N/C. NO S/S OF PAIN OR DISTRESS NOTED. ALL FALS PRECAUTIONS IN PLACE.
--- NOTE | 2020-09-07 02:00 | NUR ---
PT ABLE TO TURN SELF IN BED NO S/S OF PAIN OR DISCOMFORT, RESPIRATIONS EVEN AND UNLABORED ON 2 LITERS VIA N/C SHE IS STATING AT 92%. ALL FALLS PRECAUTIONS IN PLACE.
[2020-09-07 04:45] VITALS: BP 159/80
--- NOTE | 2020-09-07 06:21 | NUR ---
PT IS AWAKE AND ALERT WITH 2 LITERS VIA N/C V/S FOLLOWS: T 97.7 P 76 R 15 B/P 159/80 02 96% WITH 2 LITERS VIA N/C. PT GIVEN ORDERED HEPARIN SHOT.ALL FALLS PRECAUTIONS IN PLACE
--- NOTE | 2020-09-07 06:30 | NUR ---
PT FINGERSTICK IS 152, SHE WAS GIVEN 2 UNITS COVERAGE PER S/S. FALLS PREVENTION IN PLACE.
[2020-09-07] MEDS: INSULIN LISPRO SLIDING SCALE 100 UNITS/ML VIAL SUBQ PRN ×3 (06:48→17:27)
[2020-09-07] MEDS: BLOOD GLUCOSE MONITORING 1 DEV DEV FS SCH ×3 (06:57→17:22)
[2020-09-07 07:20] LABS: BASOPHILS % (AUTO) 0.4 % (0.0-2.0); HEMATOCRIT 29.3 % (36-48); HEMOGLOBIN 9.8 g/dL (12.0-16.0); LYMPHOCYTES # (AUTO) 0.4 K/uL (2.5-16.5); LYMPHOCYTES % (AUTO) 5.3 % (20.5-51.1); MEAN CORPUSCULAR HEMOGLOBIN 31 pg (27-31); MEAN CORPUSCULAR HGB CONC 34 g/dL (33-37); MEAN CORPUSCULAR VOLUME 92.3 fL (80-94); MONOCYTES # (AUTO) 0.4 K/uL (0.8-1.0); MONOCYTES % (AUTO) 5.3 % (1.7-9.3); PLATELET COUNT (AUTO) 150 K/uL (140-450); RED BLOOD CELL COUNT(AUTO) 3.18 MIL/uL (4.20-5.40); RED CELL DISTRIBUTION WIDTH 18.6 % (11.6-13.7); WHITE BLOOD COUNT (AUTO) 7.8 K/uL (4.8-10.8)
[2020-09-07 07:24] LABS: ANION GAP 15.1 (8-16); CARBON DIOXIDE 28.8 mmol/L (21-32); POTASSIUM 4.9 mmol/L (3.5-5.1)
[2020-09-07 07:42] LABS: CREATININE 6.2 mg/dL (0.6-1.3)
[2020-09-07] MEDS: PANTOPRAZOLE 40 MG TABEC PO SCH (09:35)
[2020-09-07] MEDS: CALCIUM ACETATE 667 MG TAB PO SCH ×3 (09:36→17:19)
[2020-09-07] MEDS: LOSARTAN 50 MG TAB PO SCH (09:36)
[2020-09-07] MEDS: METOPROLOL 25 MG TAB PO SCH (09:36)
[2020-09-07] MEDS: ATORVASTATIN 20 MG TAB PO SCH (09:36)
[2020-09-07] MEDS: ASPIRIN 81 MG TAB.CHEW PO SCH (09:37)
[2020-09-07] MEDS: INSULIN LANTUS 100 UNITS/ML 10 ML VIAL SUBQ SCH (09:38)
--- NOTE | 2020-09-07 09:40 | NUR ---
SCHEDULED MORNING MEDICATION GIVEN, EDUCATION PROVIDED. PATIENT TOLERATED WELL. PATIENT'S O2 SAT 77% WITH 1.5L NC. INCREASED TO 3L. O2 SAT 84-88%, INCREASED O2 SAT TO 5L. AND ENCOURAGED PATIENT TO TAKE DEEP BREATHE. O2 SAT INCREASED TO 92%. NO RESPIRATORY DISTRESS NOTED. PATIENT IS CALM AND RESPIRATORY EVEN, UNLABORED. SAFETY MEASURES IN PLACE, CALL LIGHT WITHIN REACH. WILL CONTINUE TO MONITOR.
[2020-09-07] MEDS: DEXAMETHASONE 4 MG/ML VIAL IVP SCH (11:41)
--- NOTE | 2020-09-07 11:52 | NUR ---
SCHEDULED MEDS GIVEN, EDUCATION PROVIDED, PATIENT TOLERATED WELL. PATIENT'S O2 SAT 100% WITH 5L NC. DECREASED TO 3.5L. O2 SAT 95%. WILL CONTINUE TO CLOSELY TO MONITOR.
--- NOTE | 2020-09-07 12:36 | NUR ---
O2 SAT 95-96% WITH 3.5L NC. 2 UNITS OF HUMALOG GIVEN FOR BLOOD GLUCOSE LEVEL 195. NO ACUTE DISTRESS NOTED, WILL CONTINUE TO MONITOR.
--- NOTE | 2020-09-07 15:20 | NUR ---
UPDATED PATIENT'S CONDITION TO DR. OLSON. NO NEW ORDER OBTAINED. WILL CONTINUE WITH CURRENT PLAN OF CARE.
--- NOTE | 2020-09-07 15:50 | NUR ---
PATIENT WAS ACCIDENTLY TOOK OUT THE OXYGEN, O2 SAT 80% IN RA. 96% WITH 3.5L NC. WILL CONTINUE TO MONITOR.
[2020-09-07 16:00] VITALS: BP 161/72
--- NOTE | 2020-09-07 17:27 | NUR ---
2 UNITS OF HUMALOG GIVEN FOR BLOOD GLUCOSE LEVEL 169, EDUCATION PROVIDED. INFORMED PATIENT THAT SHE IS GOING HOME TODAY. PATIENT IS HAPPY ABOUT GOING HOME. O2 SAT 96%. WILL CONTINUE TO MONITOR.
--- NOTE | 2020-09-07 18:35 | NUR ---
DISCHARGE INSTRUCTION PROVIDED. DC PAPER SIGNED. REACHED OUT PATIENT'S DAUGHTER MEGHA, [phone] AWARE. HOME OXYGEN BE DELIVERED. WILL FLANGER THE PATIENT IN 30 MINS.
--- NOTE | 2020-09-07 19:15 | NUR ---
ENDORSED PATIENT TO MEDICAL SECRETARY RN FOR CONTINUITY OF CARE AND DISCHARGE.
--- NOTE | 2020-09-07 19:16 | NUR ---
RECEIVED BEDSIDE REPORT FROM DAY RN. PT IS AAOX4 [place] SPEAKING. RESPIRATIONS ARE EQUAL AND UNLABORED ON 3.5L O2 SAT WELL 95%. NO IV PT ON DROPLET ISOLATION FOR COVID + D/C COMPLETE. PAPER WORK DONE. PT IS DRESSED AND READY. PT'S DAUGHTER WILL MASK INSPECTOR PT IN APPROX 20MIN. PT GOING HOME WITH HOME O2 O2 TANK IN ROOM. POC DISCUSSED WITH PT. PT VERBALIZED UNDERSTANDING.
--- NOTE | 2020-09-07 19:55 | NUR ---
PT WAS WHEELED OUT VIA WHEELCHAIR IN STABLE CONDITION WEARING SURGICAL MASK. CONNECTED TO 3L O2 VIA HOME O2 TANK. SAT WELL 95% NO S/S OF RESPIRATORY DISTRESS. DISCHARGE REVIEWED WITH DAUGHTER MEGHA WHO VERBALIZED UNDERSTANDING. ARM BAND REMOVED. ALL NEEDS MET.
== END 2020-09-07 19:55 | disposition home or self-care (01) | DRG 177 ==
LOC: MED 12:50 → MTU 16:48
PROVIDERS: ADMIT Internal Medicine; ATTEND Internal Medicine
PROC: 5A1D70Z Performance of Urinary Filtration, Intermittent, Less than 6 Hours Per Day (ICD-10-PCS; principal; 2020-09-01)
PROC: 5A1D70Z Performance of Urinary Filtration, Intermittent, Less than 6 Hours Per Day (ICD-10-PCS; 2020-09-03)
PROC: 5A1D70Z Performance of Urinary Filtration, Intermittent, Less than 6 Hours Per Day (ICD-10-PCS; 2020-09-05)
DX: U07.1 COVID-19 (principal); J12.89 Other viral pneumonia; J96.01 Acute respiratory failure with hypoxia; N18.6 End stage renal disease; I12.0 Hypertensive chronic kidney disease with stage 5 chronic kidney disease or end stage renal disease; Z99.2 Dependence on renal dialysis; D63.1 Anemia in chronic kidney disease; E11.22 Type 2 diabetes mellitus with diabetic chronic kidney disease; E83.39 Other disorders of phosphorus metabolism; I25.10 Atherosclerotic heart disease of native coronary artery without angina pectoris; K21.9 Gastro-esophageal reflux disease without esophagitis; R79.89 Other specified abnormal findings of blood chemistry; I45.10 Unspecified right bundle-branch block; Z53.29 Procedure and treatment not carried out because of patient's decision for other reasons; Z95.1 Presence of aortocoronary bypass graft; Z79.4 Long term (current) use of insulin; Z98.2 Presence of cerebrospinal fluid drainage device; Z79.899 Other long term (current) drug therapy
CPT/HCPCS: 36415; 71045; 80048; 80053; 82550; 82553; 82728; 82948; 83735; 83880; 84100; 84484; 85025; 85379; 86140; 86900; 86901; 87081; 93005; 96365; 96368; 96375; 99291; J0360; J0456; J0696; J1100; J1644; J1815; J2270; J2405; J7060; U0003